=== PATIENT | male | born 1965 | race Caucasian/White ===

== ENCOUNTER → 2017-12-19 07:00 | Outpatient (CLI) | payer BC, SELFPAY ==
[2017-12-19 10:38] LABS: Cholesterol 184 mg/dL (200); High Density Lipoprotein 39 mg/dL; T4 Total, Thyroxin 9.8 ug/dL (4.5-12.1); Thyroid Stim Hormone (TSH) 0.69 uIU/mL (0.358-3.74); Triglycerides 177 mg/dL; Very Low Density Lipoprotein 35 mg/dL (5-40)
== END ==
PROVIDERS: Family Provider Family Medicine; PCP Family Medicine; Visit Provider Family Medicine
DX: E03.9 Hypothyroidism, unspecified (principal); E78.5 Hyperlipidemia, unspecified
CPT/HCPCS: 36415; 80061; 84436; 84443

== ENCOUNTER → 2019-01-16 07:02 | Outpatient (CLI) | payer OTHER, SELFPAY ==
[2019-01-16 10:36] LABS: AST(SGOT) 25 U/L (15-37); Alanine Aminotransfer ALT/SGPT 44 U/L (16-61); Cholesterol 238 mg/dL (200); High Density Lipoprotein 34 mg/dL; T4 Total, Thyroxin 6.8 ug/dL (4.5-12.1); Thyroid Stim Hormone (TSH) 2.79 uIU/mL (0.358-3.74); Triglycerides 457 mg/dL
== END ==
PROVIDERS: Family Provider Family Medicine; PCP Family Medicine; Referring Provider Family Medicine; Visit Provider Family Medicine
DX: E78.5 Hyperlipidemia, unspecified (principal); E03.9 Hypothyroidism, unspecified
CPT/HCPCS: 36415; 80061; 84436; 84443; 84450; 84460

== ENCOUNTER → 2019-03-13 13:46 | Outpatient (CLI) | payer OTHER, SELFPAY ==
--- NOTE | 2019-03-13 15:20 | NEURO ---
NCS and/or EMG Patient Report Ordering Doctor: Sue Zhang DATE OF SERVICE: 03/13/19 Noel Spain is a 53-year-old male presents for electrodiagnostic testing of the upper limbs. He reports numbness and tingling in both hands, worse on the left side. Electrodiagnostic findings: The left median motor nerve demonstrates prolonged distal latency with normal amplitude and reduced conduction velocity. Right median motor nerve demonstrates prolonged distal latency with normal amplitude and reduced conduction velocity. Normal ulnar motor response bilaterally. Prolonged right median F-wave. Prolonged left ulnar F-wave. Prolonged median sensory latency at the wrist bilaterally. Prolonged left median palmar latency On needle EMG, all muscles tested in the upper limb showed no evidence of denervation with normal motor unit action potentials. Next Electrodiagnostic impression: This is an abnormal study in the upper limbs. 1. 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 This is consistent with a mild right carpal tunnel syndrome and a moderate left carpal tunnel syndrome. If there are any further questions, please not hesitate to contact me
== END ==
PROVIDERS: Family Provider Family Medicine; PCP Family Medicine; Referring Provider Family Medicine; Visit Provider Family Medicine
DX: R20.2 Paresthesia of skin (principal)
CPT/HCPCS: 95886; 95912

== ENCOUNTER 2019-04-30 12:29 | Day surgery (SDC) | payer OTHER, SELFPAY ==
[2019-04-12 10:08] VITALS: BMI 32.5
[2019-04-30 13:14] VITALS: BP 126/79; PULSE 75; RESP 16; TEMP 36.5; O2SAT 98; BMI 33.1
[2019-04-30] MEDS: Lactated Ringers 1,000 ML 100 ML IV (13:26)
--- NOTE | 2019-04-30 13:33 | PCM.HP.BLA ---
History and Physical Date of Admission: 04/30/19 Intake Vital Signs 04/12/19 Height 6 ft 04/12/19 Weight: 240 lb 04/12/19 Body Mass Index (BMI) 32.5 Intake Visit Reasons: Bilat wrists Is patient in pain?: Yes Medications aspirin 325 mg tablet 325 mg PO DAILY 04/12/19 [History Confirmed 04/12/19] gemfibrozil 600 mg tablet 600 mg PO BID 04/12/19 [History Confirmed 04/12/19] levothyroxine 25 mcg tablet 25 mcg PO DAILY 04/12/19 [History Confirmed 04/12/19] niacin 100 mg tablet 100 mg PO DAILY 04/12/19 [History Confirmed 04/12/19] HPI Bilat wrists: Chief Complaint: Referral from Dr. Zhang b/l hand numbness tingling and pain left worse Details: Parts of this documentation were recorded by a scribe, this documentation accurately reflects the service provided and the decisions made by me, Jesus Stephenson, 04/12/19 0752. JAIME AMOS is a 53 year old M NEW patient here today for bilateral carpal tunnel, referred by Dr Zhang. He has a recent EMG here for review. He denies any bracing at night but has been positioning his hands on his chest at night for comfort. He states that he has numbness into all fingers but the pinky and that has been going on for a year. Left hand has greater symptoms than the right. Patient is right hand dominant. Denies any injections. Ortho Exam Right Wrist/Hand Skin/Wound: No Swelling, No Ecchymosis, Yes nail intact, Yes capillary refill normal Right Wrist: Yes ROM-Extension 0-60, ROM-Flexion 0-80, ROM-Pronation 0-80 and ROM-Supination 0-90; no Durken's Test (symptoms present prior to provocati), Tinel's, Phalen's (symptoms present prior to provocative maneuvers), Thenar Atrophy or Hypothenar Atrophy Sensation: Radial: I, Ulnar: I, Median: D Left Wrist/Hand Skin/Wound: No Swelling, No Ecchymosis, Yes nail intact, Yes capillary refill normal, No erythema Left Wrist: Yes ROM-Extension 0-60, Yes ROM-Flexion 0-80, Yes ROM-Pronation 0-80 and Yes ROM-Supination 0-90; no Durken's Test (symptoms present prior to provocati), no Tinel's, no Phalen's (symptoms present prior to provocative maneuvers), no Thenar Atrophy or no Hypothenar Atrophy Sensation: Radial: I, Ulnar: I, Median: D Right Elbow Test: No Tinel's Left Elbow Test: No Tinel's Supplemental Info EMG 03/13/19: Bilateral carpal tunnel syndrome mild right moderate left Assessment & Plan Problems 1. Carpal tunnel syndrome, bilateral G56.03 Plan Educated on the anatomy of the wrist and innervation of the nerves, patient has mild right carpal tunnel and moderate left carpal tunnel. His treatment options are night splint with anti inflammatory for 6wks, and nerve gliding exercises, or carpal tunnel release. To treat both we can release the left and splint the right for 6wks at night. No anti inflammatory for a week prior to surgery. Reviewed the risk of continued weakness and tingling but it can resolve over time, the purpose of surgery is to stop progression. Risks, benefits and alternatives of surgery reviewed including but no limited to risk of incisional hypersensitivity, pillar pain and continued symptomology, nerve or artery damage, finger and wrist stiffness. Post op restrictions reviewed. Follow up post op or sooner if pain, swelling, numbness or associated symptoms, or concerns develop. All questions answered. Patient in agreement of plan. Will forward a copy of this note to Dr. Bowers. Thank you for this referral. Coding Level of Care Code 23551 Diagnoses Carpal tunnel syndrome, bilateral G56.03 I have re-examined the patient. There are no clinical changes since date of exam
--- NOTE | 2019-04-30 13:35 | PCM.DC.ORTHO ---
Discharge Diet: No Restrictions Call your doctor if you observe: Fever of 101 or Higher, Shortness of breath, Chest pain Additional Instructions: Ice and elevate operative extremity next 72 hours. Keep dressing on clean and dry for 48 hours then may remove and allow warm soapy water to rinse over incision but do not submerge until sutures are out. Then apply bandaid over incision and change daily. encourage finger range of motion. Not lift more than 1/2 pound. Allergies/Adverse Reactions: Allergies No Known Allergies Allergy (Verified 04/23/19 08:16) Medications to take at Discharge aspirin 325 mg tablet 325 mg PO QHS 04/12/19 gemfibrozil 600 mg tablet 600 mg PO BID 04/12/19 levothyroxine 25 mcg tablet 25 mcg PO DAILY 04/12/19 niacin 100 mg tablet 100 mg PO DAILY 04/12/19 Hydrocodone Bitart/Apap 5-325 [[place] 5MG-325MG] 1 - 2 tablet PO Q4H PRN PRN 5 Days #40 tablet 04/30/19 The following prescriptions were given: Hydrocodone Bitart/Apap 5-325 [[place] 5MG-325MG] 1 - 2 tablet PO Q4H PRN PRN 5 Days #40 tablet PRN Reason: Pain Transmission Status: Received by [facility]/pharmacy #[id number] Primary Care Physician: Sue Zhang MD [Primary Care Provider] - Test Results: Test results from this visit will be discussed in further detail at your follow-up appointment, if applicable. Please Follow Up With: Jesus Stephenson DO - 2 weeks
[2019-04-30] MEDS: Cefazolin 2 GM in 0.9% Normal Saline 100 ML IV (13:45)
[2019-04-30] MEDS: Bupiv/Epi 0.25% 30 ML Vial (13:50)
--- NOTE | 2019-04-30 14:11 | PCM.OPRPT ---
Report of Operation Date of Procedure: 04/30/19 Description of Surgical Findings:: Preoperative diagnosis; left carpal tunnel syndrome Postoperative diagnosis; same Procedure: Left open carpal tunnel release Anesthesia: Local with MAC Tourniquet time; 12 minutes 250 mm Hg Complications: None Indication for procedure; This is a D3-year-old male with long-standing symptoms consistent with carpal tunnel syndrome the patient did have electrodiagnostic evidence of this and has failed conservative treatment. Risks benefits and alternatives were reviewed including risks of bleeding infection nerve artery tissue damage need for further surgery and continued pain and symptoms, hypersensitivity to scar and Pillar pain. Procedure; The patient was met in the preoperative holding area the operative extremity was identified by both patient and physician and was marked the patient was met by anesthesia and brought back to the operating room and transferred to the operating table in the supine position. Aanesthesia was started. A well-padded tourniquet was placed on the operative upper extremity. The patient was prepped and draped in the usual sterile fashion. A timeout was called to ensure the proper patient procedure and extremity were being contemplated. 0.5 percent Marcaine with epinephrine was injected into the incisional area. An Esmarch was used to exsanguinate the extremity. The tourniquet was inflated to 250 mmHg. A midline incision was made with a 15 blade scalpel between the thenar and hypothenar eminence. This was carried down through the skin and subcutaneous tissue. Saeed retractors were then used, a deep blade scalpel was used to make a deep incision in the palmar aponeurosis. The saeed retractors were then placed deep to this and the transverse carpal ligament was identified a perforation was made with a scalpel and a Littler scissors were used to complete the release of the transverse carpal ligament distally under direct visualization with the tips facing ulnarly until the perivascular fat was reached. Then turning our attention proximally using a tension slide technique the proximal extent of the transverse carpal ligament was released . There was noted to be hourglass configuration to the median nerve and hypertrophy of the transverse carpal ligament without other findings. The wound was thoroughly irrigated and was closed with 4-0 prolene vertical mattress stitches. Dressing was applied in the form of xeroform 4 x 4, web roll and an tania wrap. Tourniquet was let down there is no intraoperative complications patient tolerated the procedure well and was transferred to the PACU. All counts were correct.
[2019-04-30 14:14] VITALS: BP 108/74; BP 126/79; PULSE 81; RESP 16; TEMP 36.8; O2SAT 97
[2019-04-30 14:20] VITALS: BP 112/71; BP 126/79; PULSE 82; RESP 16; O2SAT 96
[2019-04-30 14:25] VITALS: BP 103/76; BP 126/79; PULSE 88; RESP 16; O2SAT 97
[2019-04-30 14:30] VITALS: BP 110/76; BP 126/79; PULSE 80; RESP 16; TEMP 36.6; O2SAT 96
[2019-04-30 15:18] VITALS: BP 126/79
== END 2019-04-30 15:22 | disposition home or self-care (01) ==
LOC: SDC 12:29 → AC 12:30
PROVIDERS: Family Provider Family Medicine; PCP Family Medicine; Referring Provider Orthopaedic Surgery; Visit Provider Orthopaedic Surgery
PROC: (CPT 64721; principal; 2019-04-30 13:45)
DX: G56.03 Carpal tunnel syndrome, bilateral upper limbs (principal); E78.00 Pure hypercholesterolemia, unspecified; E06.9 Thyroiditis, unspecified; Z79.82 Long term (current) use of aspirin; Z79.899 Other long term (current) drug therapy
CPT/HCPCS: 01810; 64721; J7120; J2405

== ENCOUNTER → 2020-01-03 08:44 | Outpatient (CLI) | payer OTHER, SELFPAY ==
[2019-06-07 08:12] VITALS: BMI 33.1
[2020-01-03 10:28] LABS: AST(SGOT) 24 U/L (15-37); Alanine Aminotransfer ALT/SGPT 80 U/L (16-61); Cholesterol 285 mg/dL (200); High Density Lipoprotein 31 mg/dL; T4 Total, Thyroxin 8.6 ug/dL (4.5-12.1); Thyroid Stim Hormone (TSH) 1.82 uIU/mL (0.358-3.74); Triglycerides 512 mg/dL
== END ==
PROVIDERS: PCP Family Medicine; Referring Provider Family Medicine; Visit Provider Family Medicine
DX: E78.5 Hyperlipidemia, unspecified (principal); E03.9 Hypothyroidism, unspecified
CPT/HCPCS: 36415; 80061; 84436; 84443; 84450; 84460

== ENCOUNTER → 2020-03-31 13:01 | Outpatient (CLI) | payer OTHER, SELFPAY ==
[2019-06-07 08:12] VITALS: BMI 33.1
[2020-03-31 15:26] LABS: AST(SGOT) 27 U/L (15-37); Alanine Aminotransfer ALT/SGPT 49 U/L (16-61); Cholesterol 178 mg/dL (200); High Density Lipoprotein 45 mg/dL; PSA,Total - Annual Screen 0.24 ng/mL (0.00-4.00); Triglycerides 235 mg/dL; Very Low Density Lipoprotein 47 mg/dL (5-40)
== END ==
PROVIDERS: PCP Family Medicine; Referring Provider Family Medicine; Visit Provider Family Medicine
DX: E78.5 Hyperlipidemia, unspecified (principal); Z12.5 Encounter for screening for malignant neoplasm of prostate
CPT/HCPCS: 36415; 80061; 84153; 84450; 84460; G0103

== ENCOUNTER → 2020-09-25 07:00 | Outpatient (CLI) | payer OTHER, SELFPAY ==
[2019-06-07 08:12] VITALS: BMI 33.1
[2020-09-25 10:53] LABS: AST(SGOT) 31 U/L (15-37); Alanine Aminotransfer ALT/SGPT 75 U/L (16-61); Cholesterol 168 mg/dL (200); High Density Lipoprotein 39 mg/dL; T4 Total, Thyroxin 11.4 ug/dL (4.5-12.1); Thyroid Stim Hormone (TSH) 0.24 uIU/mL (0.358-3.74); Triglycerides 307 mg/dL; Very Low Density Lipoprotein 61 mg/dL (5-40)
== END ==
PROVIDERS: PCP Family Medicine; Referring Provider Family Medicine; Visit Provider Family Medicine
DX: E78.5 Hyperlipidemia, unspecified (principal); E03.9 Hypothyroidism, unspecified
CPT/HCPCS: 36415; 80061; 84436; 84443; 84450; 84460

== ENCOUNTER → 2021-09-30 | Outpatient (CLI) | payer OTHER, SELFPAY ==
[2021-09-30 10:26] LABS: AST(SGOT) 19 U/L (15-37); Alanine Aminotransfer ALT/SGPT 39 U/L (16-61); Cholesterol 164 mg/dL (200); High Density Lipoprotein 38 mg/dL; T4 Total, Thyroxin 11.9 ug/dL (4.5-12.1); Triglycerides 276 mg/dL; Very Low Density Lipoprotein 55 mg/dL (5-40)
[2021-09-30 10:36] LABS: Hemoglobin A1c 11.3 % (3.8-5.6)
== END | disposition home or self-care (01) ==
PROVIDERS: PCP Family Medicine; Referring Provider Family Medicine; Visit Provider Family Medicine
DX: E78.5 Hyperlipidemia, unspecified (principal); E03.9 Hypothyroidism, unspecified
CPT/HCPCS: 36415; 80061; 83036; 84436; 84443; 84450; 84460

== ENCOUNTER → 2022-09-30 | Outpatient (CLI) | payer OTHER, SELFPAY ==
[2022-09-30 10:41] LABS: Anion Gap 6 (5-15); BUN 15 mg/dL (7-18); Calcium,Total 9.3 mg/dL (8.5-10.1); Chloride 102 mmol/L (98-107); Cholesterol 170 mg/dL (200); Creatinine, Serum 0.79 mg/dL (0.70-1.30); EST Glomerular Filtration Rate 107 mL/min (>60); Est Glom Filt Rate - Afr Amer 129 mL/min (>60); Glucose 260 mg/dL (74-106); High Density Lipoprotein 45 mg/dL; Potassium 4.1 mmol/L (3.5-5.1); Sodium Level 134 mmol/L (136-145); T4 Total, Thyroxin 11.5 ug/dL (4.5-12.1); Thyroid Stim Hormone (TSH) 0.06 uIU/mL (0.358-3.74); Triglycerides 260 mg/dL; Very Low Density Lipoprotein 52 mg/dL (5-40)
== END | disposition home or self-care (01) ==
PROVIDERS: PCP Family Medicine; Referring Provider Family Medicine; Visit Provider Family Medicine
DX: Z00.00 Encounter for general adult medical examination without abnormal findings (principal); E03.9 Hypothyroidism, unspecified; E78.5 Hyperlipidemia, unspecified
CPT/HCPCS: 36415; 80048; 80061; 84436; 84443

== ENCOUNTER → 2023-11-07 | Outpatient (CLI) | payer OTHER, SELFPAY ==
[2023-11-07 10:42] LABS: AST(SGOT) 22 U/L (15-37); Alanine Aminotransfer ALT/SGPT 27 U/L (16-61); Albumin, Serum 3.7 g/dL (3.2-5.0); Alkaline Phosphatase 61 U/L (45-117); Anion Gap 11 (5-15); BUN 19 mg/dL (7-18); BUN/Creat Ratio 22.6 RATIO (10-20); Bilirubin, Direct 0.13 mg/dL (0.00-0.30); Calcium,Total 9.2 mg/dL (8.5-10.1); Chloride 102 mmol/L (98-107); Cholesterol 156 mg/dL (200); Creatinine, Serum 0.84 mg/dL (0.70-1.30); EST Glomerular Filtration Rate 99 mL/min (>60); Est Glom Filt Rate - Afr Amer 120 mL/min (>60); Globulin 3.5 g/dL (2.2-4.2); Glucose 166 mg/dL (74-106); High Density Lipoprotein 39 mg/dL; Potassium 4.2 mmol/L (3.5-5.1); Protein, Total 7.2 g/dL (6.4-8.2); Sodium Level 134 mmol/L (136-145); T4 Total, Thyroxin 11.6 ug/dL (4.5-12.1); Thyroid Stim Hormone (TSH) 0.27 uIU/mL (0.358-3.74); Triglycerides 237 mg/dL; Very Low Density Lipoprotein 47 mg/dL (5-40)
[2023-11-10 18:21] LABS: Microalbumin,Random Urine < 5.0 mg/L (NO RANGE EST.)
== END | disposition home or self-care (01) ==
LOC: MTLAB 07:05
PROVIDERS: PCP Family Medicine; Referring Provider Family Medicine; Visit Provider Family Medicine
DX: E11.65 Type 2 diabetes mellitus with hyperglycemia (principal); E03.9 Hypothyroidism, unspecified
CPT/HCPCS: 36415; 80048; 80061; 80076; 82043; 82570; 84436; 84443

== ENCOUNTER → 2024-05-27 | Outpatient (CLI) | payer OTHER, SELFPAY ==
[2024-05-27 12:25] LABS: PSA,Total - Annual Screen 0.23 ng/mL (0.00-4.00)
== END | disposition home or self-care (01) ==
LOC: MFPLAB 10:13
PROVIDERS: PCP Family Medicine; Referring Provider Family Medicine; Visit Provider Family Medicine
DX: Z12.5 Encounter for screening for malignant neoplasm of prostate (principal)
CPT/HCPCS: 36415; 84153; G0103

== ENCOUNTER → 2024-07-17 | Outpatient (CLI) | payer OTHER, SELFPAY ==
--- NOTE | 2024-07-17 09:40 | NEURO_ITS ---
NCS and/or EMG Patient Report Ordering Doctor: Gilda Herndon DATE OF SERVICE: 07/17/24 Noel presents with complaints of numbness and tingling in both feet. He reports a 2-year history of diabetes. Electrodiagnostic findings: Peroneal motor nerve demonstrates normal distal latency, amplitude and conduction velocity bilaterally. Prolonged right tibial motor latency with reduced amplitude. Reduced left tibial conduction velocity. Prolonged H?reflex bilaterally. Prolonged tibial and peroneal F?waves bilate rally. Sensory responses were not obtainable. Needle EMG testing was performed in the lower limbs. All muscles tested showed no evidence of denervation with normal motor unit action potentials Electrodiagnostic impression: This is an abnormal study. 1. Electrodiagnostic findings suggestive of peripheral polyneuropathy, sensory greater than motor. There is no evidence of axon loss. Findings may be secondary to diabetes mellitus. Multi Select Codes Neurology Neurology Interp Codes: 70584-57 Musc test done w/n test comp (interp) (2) and 51174-70 Nrv cndj test 11-12 studies (interp)
== END | disposition home or self-care (01) ==
PROVIDERS: PCP Family Medicine
DX: Z00.00 Encounter for general adult medical examination without abnormal findings (principal); E08.42 Diabetes mellitus due to underlying condition with diabetic polyneuropathy
CPT/HCPCS: 95886; 95912

== ENCOUNTER → 2024-07-24 | Outpatient (CLI) | payer OTHER, SELFPAY ==
--- NOTE | 2024-07-24 12:47 | NEURO ---
NCS and/or EMG Patient Report Ordering Doctor: Gilda Herndon DATE OF SERVICE: 07/24/24 Noel presents for electrodiagnostic testing of the upper limbs. He reports numbness and tingling in both hands. He has a history of carpal tunnel release in the left hand which did not help alleviate symptoms. Electrodiagnostic findings: Right median motor nerve demonstrates prolonged latency with normal amplitude and reduced conduction velocity. Left median motor nerve demonstrates normal distal latency and amplitude with reduced conduction velocity. Ulnar motor response is within normal limits bilaterally. Normal median and ulnar F?waves. Prolonged median sensory latency at the wrist. Normal ulnar and radial sensory responses. Needle EMG testing was performed in the upper limbs. All muscles tested showed no evidence of denervation with normal motor unit action potentials. Electrodiagnostic impression: This is an abnormal study in the upper limbs 1. Electrodiagnostic findings are suggestive of bilateral median mononeuropathy, consistent with a mild to moderate bilateral carpal tunnel syndrome. 2. While there are findings of polyneuropathy on testing of the lower limbs, findings in the upper limbs are largely isolated to the median nerve distribution. Multi Select Codes Neurology Neurology Interp Codes: 91755-79 Musc test done w/n test comp (interp) (2) and 37874-49 Nr cndj test 13/> studies (interp)
== END | disposition home or self-care (01) ==
LOC: PSN 06:34
PROVIDERS: PCP Family Medicine
DX: E11.42 Type 2 diabetes mellitus with diabetic polyneuropathy (principal)
CPT/HCPCS: 95886; 95913

== ENCOUNTER → 2024-09-16 | Outpatient (CLI) | payer OTHER, SELFPAY ==
[2024-09-16 13:20] LABS: Magnesium 1.8 mg/dL (1.5-2.2); Vitamin B12 855 pg/mL (180-914)
== END | disposition home or self-care (01) ==
LOC: MTLAB 10:24
PROVIDERS: PCP Family Medicine; Referring Provider Psychiatry & Neurology Neurology; Visit Provider Psychiatry & Neurology Neurology
DX: E11.40 Type 2 diabetes mellitus with diabetic neuropathy, unspecified (principal)
CPT/HCPCS: 36415; 82607; 83735

== ENCOUNTER → 2024-11-26 | Outpatient (CLI) | payer OTHER, SELFPAY ==
--- OUTSIDE RECORDS SUMMARY | 2024-11-26 07:15 | XMS RPT_ITS | CCD ---
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 Sue Hester Primary Care Provider Leatha BAEZA, Dr. Sue Hester Attending Provider Leatha BAEZA, Dr. Sue Hester Referring Provider Destiney BAEZA, Dr. Lee Attending Provider Yanick INCOME TAX PREPARER-C, Gilda Attending Provider Yanick INCOME TAX PREPARER-C, Gilda Referring Provider Yanick INCOME TAX PREPARER-C, Gilda Other Provider Martha BAEZA, Dr. Miller Attending Provider Destiney BAEZA, Dr. Lee Referring Provider Keyonalliff, Sue S Referring Unavailable DarlinepensJesus campa Attending Unavailable Jolliff, Sue S Primary Care Unavailable Angela Thomas Attending Unavailable TobidnGilda espinosa Consulting Unavailable TobidnerGilda Referring Unavailable Jolliff, Sue S Primary Care Unavailable Angela Thomas Attending Unavailable TobidnerGilda Referring Unavailable BordnerGilda Consulting Unavailable Jolliff, Sue S Primary Care Unavailable Keyonalliff, Sue S Primary Care Unavailable Jesus Cabello Referring Unavailable Jesus Cabello Attending Unavailable Keyonalliff, Sue S Primary Care Unavailable Jolliff, Sue S Referring Unavailable Jesus Cabello Attending Unavailable TobidnerGilda Referring Unavailable BordnerGilda Attending Unavailable Jolliff, Sue S Primary Care Unavailable Bordner, Gilda Referring Unavailable Bordner, Gilda Attending Unavailable Jolliff, Sue S Primary Care Unavailable Jolliff, Sue S Referring Unavailable Jolliff, Sue S Attending Unavailable Jolliff, Sue S Primary Care Unavailable Sue Zhang Referring Unavailable uSe Zhang Attending Unavailable Sue Zhang Primary Care Unavailable Medications Current Medications Medication Drug Class(es) Dates Sig (Normalized) Sig (Original) gabapentin 600 mg oral tablet (1 source) Anti-epileptic Agent Start: 07-05-2024 take 1 tablet by mouth at bedtime Gabapentin 600 mg tablet Active 600 mg PO AT BEDTIME July 05, 2024 1:00am levothyroxine sodium 0.175 mg oral tablet (4 sources) l-Thyroxine Start: 07-05-2024 take 1 tablet by mouth once daily Levothyroxine 175 mcg tablet Active 175 ug PO daily July 05, 2024 1:00am Start: 04-12-2019 End: 07-05-2024 take 1 tablet by mouth once daily Levothyroxine (Synthroid) 25 mcg tablet Discontinued 25 ug PO DAILY April 12, 2019 1:00am July 05, 2024 10:33am metFORMIN hydrochloride 500 mg oral tablet (2 sources) Biguanide Start: 07-05-2024 End: 2024 take 2 tablets by mouth in the evening Metformin 500 mg tablet Active 500 mg PO .COMPLEX 2024 9:44am 500 mg orally 1 tab in the am and 2 tabs in the pm; rosuvastatin calcium 20 mg oral tablet (1 source) HMG-CoA Reductase Inhibitor Start: 07-05-2024 take 1 tablet by mouth once daily Rosuvastatin 20 mg tablet Active 20 mg PO daily July 05, 2024 1:00am ubidecarenone 200 mg oral capsule (1 source) Start: 07-05-2024 Coenzyme Q10 ( Co Q-10) 200 mg capsule Active 200 mg PO TWICE A DAY July 05, 2024 1:00am Completed/Discontinued Medications Medication Drug Class(es) Dates Sig (Normalized) Sig (Original) acetaminophen 325 mg / HYDROcodone bitartrate 5 mg oral tablet (3 sources) Opioid Agonist Start: 04-30-2019 End: 05-22-2019 Hydrocodone-Acetami nophen 1 TABLET tablet Discontinued 1 - 2 {tbl} PO EVERY 4 HOURS NEEDED as needed for Pain 40 5 April 30, 2019 May 04, 2019 1:00am May 22, 2019 1:08am Start: 04-30-2019 End: 05-22-2019 take 1 tablet by mouth every four hours as needed Hydrocodone-Acetaminophen Discontinued 1 - 2 TABLET PO EVERY 4 HOURS NEEDED 40 5 April 30, 2019 May 22, 2019 1:08am aspirin 325 mg oral tablet (3 sources) Platelet Aggregation Inhibitor, Nonsteroidal Anti-inflammatory Drug Start: 04-12-2019 End: 07-05-2024 take 1 tablet by mouth at bedtime Aspirin 325 mg tablet Discontinued 325 mg PO AT BEDTIME April 12, 2019 1:00am July 05, 2024 10:32am gemfibrozil 600 mg oral tablet (3 sources) Peroxisome Proliferator Receptor alpha Agonist Start: 04-12-2019 End: 07-05-2024 take 1 tablet by mouth twice daily Gemfibrozil 600 mg tablet Discontinued 600 mg PO TWICE A DAY April 12, 2019 1:00am July 05, 2024 10:33am niacin 100 mg oral tablet (3 sources) Nicotinic Acid Start: 04-12-2019 End: 07-05-2024 take 1 tablet by mouth once daily Niacin 100 mg tablet Discontinued 100 mg PO DAILY April 12, 2019 1:00am July 05, 2024 10:33am Problems Active Problems Problem Classification Problem Date Documented Date Episodic/Chronic Diabetes mellitus with complications (8 sources) Neuropathy due to diabetes mellitus; Translations: [Type 2 diabetes mellitus with diabetic neuropathy, unspecified] Onset: 11-17-2023 2024 Chronic Comment on above: Patient appears to h ave likely diabetic neuropathy in both feet. It is well-demonstrated by clinical examination.Patient also has evidence of carpal tunnel actually had a carpal tunnel release on the left hand performed. Hands appear to be asymptomatic at this time and this finding was demonstrated by Tinel's sign.Patient will give magnesium oxide 400 mg by mouth daily to try and will supplement with B1 thiamine 1 mg daily, B6 pyridoxine 50 mg daily and B12 1000 mcg (1 mg) every other day.Patient will also have an EMG and nerve conduction study performed.Patient will return to neurology clinic once the above studies have been completed.09/16/2024:Patient did have an EMG nerve conduction study performed which demonstrated a sensory neuropathy. Findings were suggestive of diabetic neuropathy. Other diagnostic considerations also noted as a possibility.Patient has made some improvement over time.I will check a B12 and magnesium level. Patient return neurology clinic 1 year. Past or Other Problems Problem Classification Problem Date Documented Da te Episodic/Chronic Other screening for suspected conditions (not mental disorders or infectious disease) (1 source) Encounter for screening for malignant neoplasm of prostate; Translations: [Encounter for screening for malignant neoplasm of prostate] Onset: 06-20-2024 Episodic Results Test Name Value Interpretation Reference Range Facility Magnesiumon 2024 Magnesium [Mass/Vol] 1.8 mg/dL Normal 1.5-2.2 [facility] Comment on above: Performed By: #### L 501.5200, L503.0106 ####[facility] [address] [place], [address] Magnesium (Unsp spec) [Mass/ Vol]Ordered By: Jesus Cabello on 2024 Magnesium [Mass/Vol] 1.8 mg/dL 1.5-2.2 [facility] Neurology Visit Reporton Neurology Visit Report [facility] [address], [address] [place], [place] [address] OFFICE VISIT Date of Service: 09/16/24 MR#: [id number] Acct: [id number] Name: JAIME AMOS Rep #: [id number] : 1965 Provider: Dr. Jesus chávez MD Age/Sex: 59/M Location: [facility]. Status: Signed HPI HPI Chief Complaint: Neurology follow up Details: The patient is a 58-year-old right handed male who presents for a follow up on diabetic neuropathy and test results. Patient presents by himself for follow-up evaluation of diabetic neuropathy. Patient has noted that on occasion he has symptom-free days. His symptoms consisted of pain in the feet at night. This may be some slight improvement. On his last visit we recommended he take B12 B6 and B1. We also recommend that he take magnesium. He has also had follow-up with his primary care physician who has increased metformin dosing. Patient is also on gabapentin per PCP. This may also be suppressing patient's symptoms of painful feet at night. Patient did have an EMG and nerve conduction study completed on 07/17/2024. Findings are as noted below: Electrodiagnostic impression: This is an abnormal study. 1. Electrodiagnostic findings suggestive of peripheral polyneuropathy, sensory greater than motor. There is no evidence of axon loss. Findings may be secondary to diabetes mellitus. At this point in time it may take 3 to 6 months for patient to show improvement in neuropathy. Will have the patient back in 1 year for follow-up or sooner if needed. In the meantime I will check B12 level and magnesium level to make certain were within therapeutic range. Exam Const Other: Blood pressure is 130/70 pulse 77 respiration 16 temperature 98.4 O2 sat is 97%. BMI is 31.2% he is 5 feet 2-1/2 inches and weighs 221 pounds. General appearance well-developed well-nourished male no acute distress. Mental status appears intact. He is oriented. Memory and language functions are normal. General fund of knowledge intact. CN II-XII: Pupils are equal and round. Vision appears to be intact. Fundi not examined. Motor and sensory function of face intact. Hearing swallowing phonation tongue grossly intact. Motor examination: No focal weakness. Good strength in both hands. No atrophy is intrinsic muscles of the hand. Lower extremities also appear to have normal bulk tone and strength. Cerebellar function show no ataxia cogwheeling or rigidity. Reflexes were again difficult to elicit perhaps trace at biceps absent at knees. Absent of ankles. Toes neutral. Sensory exam showed that there is a mild decrease in sensation left hand greater than right with involvement of thumb index finger middle fingers bilaterally. Positive Tinel's left greater than right. Patient had prior surgery left hand which did not seem to improve his hand. He deferred having right hand surgery. Lower extremities show relatively profound loss of vibration and tactile sense from about mid lower leg to toes. He has intact vibratory sense and tactile sense at the knees. Station gait appears normal. Assessment and Plan Assessment and Plan (1) Diabetic neuropathy: Status: Chronic Qualifiers: Diabetes mellitus complication detail: diabetic polyneuropathy Diabetes mellitus type: due to underlying condition Qualified Code(s): E08.42 - Diabetes mellitus due to underlying condition with diabetic polyneuropathy Comment: Patient appears to have likely diabetic neuropathy in both feet. It is well-demonstrated by clinical examination. Patient also has evidence of carpal tunnel actually had a carpal tunnel release on the left hand performed. Hands appear to be asymptomatic at this time and this finding was demonstrated by Tinel's sign. Patient will give magnesium oxide 400 mg by mouth daily to try and will supplement with B1 thiamine 1 mg daily, B6 pyridoxine 50 mg daily and B12 1000 mcg (1 mg) every other day. Patient will also have an EMG and nerve conduction study performed. Patient will return to neurology clinic once the above studies have been completed. 2024: Patient did have an EMG nerve conduction study performed which demonstrated a sensory neuropathy. Findings were suggestive of diabetic neuropathy. Other diagnostic considerations also noted as a possibility. Patient has made some improvement over time. I will check a B12 and magnesium level. Patient return neurology clinic 1 year. Plan: 1. Check B12 magnesium level. 2. Have patient return to neurology clinic in 1 year or sooner if needed. Anticipate that may take 3 to 6 months before further benefit will be noted by the patient with regard to peripheral diabetic neuropathy. Orders: Orders Vitamin B12 Today E08.42 - Diabetes mellitus due to underlying condition with diabetic polyneuropathy Magnesium Today E08.42 - Diabetes mellitus due (more content not included)... Normal [facility] Vitamin B12on 2024 Cobalamin (Vitamin B12) [Mass/Vol] 855 pg/mL Normal 180-914 [facility] Comment on above: Performed By: #### L 501.5200, L503.0106 ####[facility] [id number], [address] Vitamin B12 ser/plasOrdered By: Jesus Cabello on 2024 Cobalamin (Vitamin B12) [Mass/Vol] 855 pg/mL 180-914 [facility] NCS and/or EMG Patienton NCS and/or EMG Patient [facility] Pulmonary Services/Neurology [address] [place] [address] MR#: [id number] Acct: [id number] Name: JAIME AMOS Rep #: [id number] : 1965 58 From: Angela Thomas MD Referring Dr: Gilda Herndon INCOME TAX PREPARER-C Status: REG CL I Location: [facility] Date: 07/24/24 Sex: M C NCS and/or EMG Patient Report Ordering Doctor: Gilda Herndon DATE OF SERVICE: 07/24/24 Jaime presents for electrodiagnostic testing of the upper limbs. He reports numbness and tingling in both hands. He has a history of carpal tunnel release in the left hand which did not help alleviate symptoms. Electrodiagnostic findings: Right median motor nerve demonstrates prolonged latency with normal amplitude and reduced conduction velocity. Left median motor nerve demonstrates normal distal latency and amplitude with reduced conduction velocity. Ulnar motor response is within normal limits bilaterally. Normal median and ulnar F???waves. Prolonged median sensory latency at the wrist. Normal ulnar and radial sensory responses. Needle EMG testing was performed in the upper limbs. All muscles tested showed no evidence of denervation with normal motor unit action potentials. Electrodiagnostic impression: This is an abnormal study in the upper limbs 1. Electrodiagnostic findings are suggestive of bilateral median mononeuropathy, consistent with a mild to moderate bilateral carpal tunnel syndrome. 2. While there are findings of polyneuropathy on testing of the lower limbs, findings in the upper limbs are largely isolated to the median nerve distribution. Multi Select Codes Neurology Neurology Interp Codes: 27943-57 Musc test done w/n test comp (interp) (2) and 08730-53 Nrv cndj test 13/> studies (interp) 07/24/24 1251 Date Angela Thomas MD CC: INCOME TAX PREPARER-C Gilda Herndon; Dr. Sue Zhang MD; Dr. Angela Thmoas MD Date Dictated: 07/24/24 1247 Date Transcribed: 07/24/24 124 Cushion Builder: AA Signed Normal [facility] NCS and/or EMG Patienton NCS and/or EMG Patient [facility] Pulmonary Services/Neurology [address] [place] [address] MR#: [id number] Acct: [id number] Name: JAIME AMOS Rep #: [id number] : 1965 58 From: Angela Thomas MD Referring Dr: Gilda Herndon INCOME TAX PREPARER-C Status: REG CL I Location: [facility] Date: 07/17/24 Sex: M C NCS and/or EMG Patient Report Ordering Doctor: Gilda Herndon DATE OF SERVICE: 07/17/24 Jaime presents with complaints of numbness and tingling in both feet. He reports a 2-year history of diabetes. Electrodiagnostic findings: Peroneal motor nerve demonstrates normal distal latency, amplitude and conduction velocity bilaterally. Prolonged right tibial motor latency with reduced amplitude. Reduced left tibial conduction velocity. Prolonged H???reflex bilaterally. Prolonged tibial and peroneal F???waves bilaterally. Sensory responses were not obtainable. Needle EMG testing was performed in the lower limbs. All muscles tested showed no evidence of denervation with normal motor unit action potentials Electrodiagnostic impression: This is an abnormal study. 1. Electrodiagnostic findings suggestive of peripheral polyneuropathy, sensory greater than motor. There is no evidence of axon loss. Findings may be secondary to diabetes mellitus. Multi Select Codes Neurology Neurology Interp Codes: 19103-84 Musc test done w/n test comp (interp) (2) and 48404-92 Nrv cndj test 11-12 studies (interp) 07/17/24 0945 Date Angela Thomas MD CC: SUE Herndon; Dr. Sue Zhang MD; Dr. Angela Thomas MD Date Dictated: 07/17/24939 Date Transcribed: 07/17/24939 Cushion Builder: MARCO ANTONIO Signed Normal [facility] Neurology Visit Reporton Neurology Visit Report [facility] [address], [address] [place] [id number] OFFICE VISIT Date of Service: 07/05/24 MR#: [id number] Acct: [id number] Name: JAIME AMOS Rep #: [id number] : 1965 Provider: Dr. Jesus chávez MD Age/Sex: 58/M Location: [facility].BN Status: Signed with Addenda ADDENDUM by SUE Herndon on 07/17/24 at 1247 Addendum NCS and/or EMG Patient Report Ordering Doctor: Gilda Herndon DATE OF SERVICE: 07/17/24 Jaime presents with complaints of numbness and tingling in both feet. He reports a 2-year history of diabetes. Electrodiagnostic findings: Peroneal motor nerve demonstrates normal distal latency, amplitude and conduction velocity bilaterally. Prolonged right tibial motor latency with reduced amplitude. Reduced left tibial conduction velocity. Prolonged H???reflex bilaterally. Prolonged tibial and peroneal F???waves bilaterally. Sensory responses were not obtainable. Needle EMG testing was performed in the lower limbs. All muscles tested showed no evidence of denervation with normal motor unit action potentials Electrodiagnostic impression: This is an abnormal study. 1. Electrodiagnostic findings suggestive of peripheral polyneuropathy, sensory greater than motor. There is no evidence of axon loss. Findings may be secondary to diabetes mellitus. 07/17/24 1247 Date Gilda Herndon INCOME TAX PREPARER-C cc: * Signed HPI HPI Chief Complaint: [facility] Details: The patient is a 58-year-old right handed male who presents to [facility]. He was referred 05/27/[address] Sue Zhang with [facility] for neuropathy. This patient presents by himself for evaluation of paresthesias of both feet involving the forefoot and toes. He states he has 24/7 tingling to sharp pain in both feet. Is particularly bothersome at night. He notes that he is on his feet feeling heavy labor during the day and that it seems that his foot problem is less intense when he is standing on his feet and when he sitting down or relaxing. 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 No particular toxic exposures or other precipitating factors noted. Patient has had symptoms for about perhaps 5 years or more. Patient has had a left hand carpal tunnel release performed. His hands appear to be asymptomatic at this time. He has been diagnosed with diabetes about 2 years ago. Patient's hemoglobin A1c is about 7.5 according to the patient. Patient is currently on metformin for management of his diabetes. He has a negative neurologic history. Does not have strokes or seizures. He does have hypercholesterolemia which is being treated but primary care. He does have his eyes monitored for diabetic change and appears to have no diabetic involvement of the eyes according to the patient. ROS: Head: No headache or head injuries Eyes: No change in vision Ears: No loss of hearing Respiratory no shortness of breath cough hemoptysis Cardiac no chest pain palpitations Abdomen no pain does not vomit blood does not pass blood per stool no hematuria. Extremities prior injury to right hand relatively minor blunt trauma now asymptomatic Skin mid garcia bruises on [place] hitch on his truck. Heal without difficulty. No open wounds. He did have a growth removed from the right side of head and neck which was not malignant. His past medical history does indicate that he had a melanoma on his back that had been removed. Neurologic: No seizures or strokes. He does have mild intermittent tremor of the hands. Exam Const Other: Blood pressure 110/72 pulse 92 respiration 16 temperature 98.6 O2 sat 97%. General appearance is a well-developed well-nourished male no acute distress. HEENT normocephalic. Conjunctiva clear Respiratory: Clear to auscultation Cardiac: No murmurs regular rhythm Abdomen not distended Extremities very minor trauma mid garcia 3 mm or so in size. Healing nicely. Skin skin appears to be intact and skin of feet and toenails appear healthy. Neurologic examination: Mental status: Awake alert oriented to person place day month year. Memory shows recalled 2 out of 3 objects. Language show normal receptionist scheduler expression repetition naming. Insight and judgment appears normal. CN II-XII: Pupils equal round react light. Visual torres full to confrontation. Extraocular muscles intact. Motor and sensory function face is normal. Hearing swallowing phonation tongue normal. Motor exam: Normal bulk tone and strength all 4 extremities. Cerebellar testing: Very subtle high-frequency low amplitude tremor on finger-nose maneuvers right hand. Left hand may have very subtle tremor as well but not well-seen today. Reflexes: 1+ at biceps 1+ at knees toes down. Sensory exam: Intact vibration and tactile sense both h (more content not included)... Normal [facility] PSA,Total - Annual Screenon 05-27-2024 PSA,TOT SCREEN 0.23 ng/mL Normal 0.00-4.00 [facility] Comment on above: Result Comment: This test was performed using the TPSA assay method for the [employer] chemistry system. Values obtained with different assay methods cannot be used interchangably. When changing PSA assays in the course of monitoring a patient, additional sequential testing should be carried out to confirm baseline values. Performed By: #### L 501.9910 #### [facility] [address] [place], [address] Screening prostate specific antigen (PSA) measurementOrdered By: Sue Zhang on 05-27-2024 Prostate Specific Antigen Screen 0.23 ng/mL 0.00-4.00 [facility] Comment on above: This test was perfor med using the TPSA assay method for the[employer] chemistry system. Values obtained with differentassay methods cannot be used interchangably.When changing PSA assays in the course of monitoring apatient, additional sequential testing should be carriedout to confirm baseline values. Microalb:Creat Ratio,Random URon 11-10-2023 Creatinine [Mass/Vol] 70.90 mg/dL Normal NO RANGE EST. [facility] Comment on above: Order Comment: Order Date: 05/16/23Order Info: 0779-1 - MIACRE Performed By: #### L 500.2500, L500.3400, L500.4100, L501.9310, L501.9520, L502.0250 ####[facility] [address] [place], [address] MALB:CRE TNP Normal <30 mg/g CRE [facility] Comment on above: Order Comment: Order Date: 05/16/23Order Info: 0779-1 - MIACRE Performed By: #### L 500.2500, L500.3400, L500.4100, L501.9310, L501.9520, L502.0250 ####[facility] [address] [place], [address] MICROALBUMIN,UR < 5.0 Normal NO RANGE EST. [facility] Comment on above: Order Comment: Order Date: 05/16/23Order Info: 0779-1 - MIACRE Performed By: #### L 500.2500, L500.3400, L500.4100, L501.9310, L501.9520, L502.0250 ####[facility] [address] [place], [place], [id number] Basic Metabolic Profile (BMP )on 11-07-2023 BUN/CRE 22.6 RATIO High 10-20 [facility] Comment on above: Order Comment: Order Date: 05/16/23 Order Info: 666-06 - BMP Order Info: 787-06 - LIVER Order Info: - LIPID Order Info: 3025-2 - T4 Order Info: 3015-3 - TSH Performed By: #### L 500.2500, L500.3400, L500.4100, L501.9310, L501.9520, L502.0250 #### [facility] [address] [place], [place], [id number] CA,Total 9.2 mg/dL Normal 8.5-10.1 [facility] Comment on above: Order Comment: Order Date: 05/16/23 Order Info: 666-06 - BMP Order Info: 787-06 - LIVER Order Info: - LIPID Order Info: 3025-2 - T4 Order Info: 3015-3 - TSH Performed By: #### L 500.2500, L500.3400, L500.4100, L501.9310, L501.9520, L502.0250 #### [facility] [address] [place], [place], [address] Chloride [Moles/Vol] 102 mmol/L Normal 98-107 [facility] Comment on above: Order Comment: Order Date: 05/16/23 Order Info: 666-06 - BMP Order Info: 787-06 - LIVER Order Info: - LIPID Order Info: 3026-2 - T4 Order Info: 6-3 - TSH Performed By: #### L 500.2500, L500.3400, L500.4100, L501.9310, L501.9520, L502.0250 #### [facility] [address] [place], [place], [address] CO2 [Moles/Vol] 21.0 mmol/L Normal 21.0-32.0 [facility] Comment on above: Order Comment: Order Date: 05/16/23 Order Info: 666-06 - BMP Order Info: 787-06 - LIVER Order Info: - LIPID Order Info: 2 - T4 Order Info: [id number] - TSH Performed By: #### L 500.2500, L500.3400, L500.4100, L501.9310, L501.9520, L502.0250 #### [facility] [address] [place], [place], [address] Creatinine [Mass/Vol] 0.84 mg/dL Normal 0.70-1.30 [facility] [facility] Comment on above: Order Comment: Order Date: 05/16/23 Order Info: 666-06 - BMP Order Info: 787-06 - LIVER Order Info: - LIPID Order Info: 2 - T4 Order Info: 3015-08 - TSH Result Comment: The validity of the calculated GFR GFRAA in patients over 70 years has not been determined. Clinical correlation is essential. Performed By: #### L 500.2500, L500.3400, L500.4100, L501.9310, L501.9520, L502.0250 #### [facility] [address] [place], [place], [id number] EST GFR - AA 120 mL/min Normal >60 [facility] Comment on above: Order Comment: Order Date: 05/16/23 Order Info: 666-06 - BMP Order Info: 787-06 - LIVER Order Info: - LIPID Order Info: 2 - T4 Order Info: 3 - TSH Result Comment: Afri can Ug[place]an GFR Calc Performed By: #### L 500.2500, L500.3400, L500.4100, L501.9310, L501.9520, L502.0250 #### [facility] [address] [place], [address] GAP 11 Normal 5-15 [facility] Comment on above: Order Comment: Order Date: 05/16/23 Order Info: 666-06 - BMP Order Info: 787-06 - LIVER Order Info: - LIPID Order Info: 3025-2 - T4 Order Info: 3 - TSH Performed By: #### L 500.2500, L500.3400, L500.4100, L501.9310, L501.9520, L502.0250 #### [facility] [address] [place], [place], [address] GFR/1.73 sq M.predicted among non-blacks MDRD (S/P/Bld) [Vol rate/Area] 99 mL/min/{1.73_m2} Normal >60 [facility] Comment on above: Order Comment: Order Date: 05/16/23 Order Info: 666-06 - BMP Order Info: 787-06 - LIVER Order Info: - LIPID Order Info: 2 - T4 Order Info: 3015-08 - TSH Result Comment: Non- GFR Calc Performed By: #### L 500.2500, L500.3400, L500.4100, L501.9310, L501.9520, L502.0250 #### [facility] [address] [place], [place], [address] Glucose [Mass/Vol] 166 mg/dL High 74-106 [facility] Comment on above: Order Comment: Order Date: 05/16/23 Order Info: 666-06 - BMP Order Info: 787-06 - LIVER Order Info: - LIPID Order Info: 3025-2 - T4 Order Info: 3 - TSH Result Comment: Fast ing Glucose result greater than or equal to 126 mg/dL suggests DIABETES MELLITUS per A.D.A. criteria. Performed By: #### L 500.2500, L500.3400, L500.4100, L501.9310, L501.9520, L502.0250 #### [facility] [address] [place], [address] Potassium [Moles/Vol] 4.2 mmol/L Normal 3.5-5.1 [facility] Comment on above: Order Comment: Order Date: 05/16/23 Order Info: 666-06 - BMP Order Info: 787-06 - LIVER Order Info: [id number] - LIPID Order Info: 3026-2 - T4 Order Info: 3015-3 - TSH Performed By: #### L 500.2500, L500.3400, L500.4100, L501.9310, L501.9520, L502.0250 #### [facility] [address] [place], [address] Sodium [Moles/Vol] 134 mmol/L Low 136-145 [facility] Comment on above: Order Comment: Order Date: 05/16/23 Order Info: 666-06 - BMP Order Info: 787-06 - LIVER Order Info: - LIPID Order Info: 3026-2 - T4 Order Info: 3015-3 - TSH Performed By: #### L 500.2500, L500.3400, L500.4100, L501.9310, L501.9520, L502.0250 #### [facility] [address] [place], [address] Urea nitrogen [Mass/Vol] 19 mg/dL High 7-18 [facility] Comment on above: Order Comment: Order Date: 05/16/23 Order Info: 666-06 - BMP Order Info: 787-06 - LIVER Order Info: 08098-1 - LIPID Order Info: 3026-2 - T4 Order Info: 6-3 - TSH Performed By: #### L 500.2500, L500.3400, L500.4100, L501.9310, L501.9520, L502.0250 #### [facility] [address] [place], [address] Lipid Profileon 11-07-2023 Cholesterol [Mass/Vol] 156 mg/dL Normal 200 [facility] Comment on above: Order Comment: Order Date: 05/16/23 Order Info: 666-06 - BMP Order Info: 787-06 - LIVER Order Info: - LIPID Order Info: 3025-07 - T4 Order Info: 3015-08 - TSH Result Comment: <200 mg/dL Desirable 200-240 mg/dL Borderline >240 mg/dL High Risk Performed By: #### L 500.2500, L500.3400, L500.4100, L501.9310, L501.9520, L502.0250 #### [facility] [address] [place], [address] Cholesterol in HDL [Mass/Vol] 39 mg/dL Low [facility] Comment on above: Order Comment: Order Date: 05/16/23 Order Info: 666-06 - BMP Order Info: 787-06 - LIVER Order Info: - LIPID Order Info: 3025-07 - T4 Order Info: 3015-08 - TSH Result Comment: The drugs N-Acetylcysteine and Metamizole may falsely depress this assay. Reference Range HDL <40 mg/dL Low HDL Cholesterol HDL >or= 60 mg/dL High HDL Cholesterol Performed By: #### L 500.2500, L500.3400, L500.4100, L501.9310, L501.9520, L502.0250 #### [facility] [address] [place], [address] Cholesterol in LDL [Mass/Vol] 70 mg/dL Normal 0-130 [facility] Comment on above: Order Comment: Order Date: 05/16/23 Order Info: 666-06 - BMP Order Info: 787-06 - LIVER Order Info: - LIPID Order Info: 3025-07 - T4 Order Info: 3015-08 - TSH Performed By: #### L 500.2500, L500.3400, L500.4100, L501.9310, L501.9520, L502.0250 #### [facility] [address] [place], [place], [address] Cholesterol in VLDL [Mass/Vol] 47 mg/dL High 5-40 [facility] Comment on above: Order Comment: Order Date: 05/16/23 Order Info: 666-06 - BMP Order Info: 787-06 - LIVER Order Info: - LIPID Order Info: 2 - T4 Order Info: 3015-08 - TSH Performed By: #### L 500.2500, L500.3400, L500.4100, L501.9310, L501.9520, L502.0250 #### [facility] [address] [facility] [address] [facility] [address] [place], [place], [address] Triglyceride [Mass/Vol] 237 mg/dL High [facility] Comment on above: Order Comment: Order Date: 05/16/23 Order Info: 666-06 - BMP Order Info: 787-06 - LIVER Order Info: - LIPID Order Info: 2 - T4 Order Info: 3015-08 - TSH Result Comment: The drugs N-Acetylcysteine and Metamizole may falsely depress this assay. Serum Triglycerides Reference Interval Normal <150 mg/dL Borderline high 150 - 199 mg/dL High 200 - 499 mg/dL Very High > or = 500 mg/dL Performed By: #### L 500.2500, L500.3400, L500.4100, L501.9310, L501.9520, L502.0250 #### [facility] [address] [place], [place], [address] Liver Profileon 11-07-2023 Albumin [Mass/Vol] 3.7 g/dL Normal 3.2-5.0 [facility] Comment on above: Order Comment: Order Date: 05/16/23 Order Info: 666-06 - BMP Order Info: 787-06 - LIVER Order Info: - LIPID Order Info: 2 - T4 Order Info: 3 - TSH Performed By: #### L 500.2500, L500.3400, L500.4100, L501.9310, L501.9520, L502.0250 #### [facility] [address] [place], [address] ALK P 61 U/L Normal 45-117 [facility] Comment on above: Order Comment: Order Date: 05/16/23 Order Info: 666-06 - BMP Order Info: 787-06 - LIVER Order Info: - LIPID Order Info: 3026-2 - T4 Order Info: 3015-3 - TSH Performed By: #### L 500.2500, L500.3400, L500.4100, L501.9310, L501.9520, L502.0250 #### [facility] [address] [place], [address] ALT [Catalytic activity/Vol] 27 U/L Normal 16-61 [facility] Comment on above: Order Comment: Order Date: 05/16/23 Order Info: 666-06 - BMP Order Info: 787-06 - LIVER Order Info: - LIPID Order Info: 3026-2 - T4 Order Info: 301-3 - TSH Performed By: #### L 500.2500, L500.3400, L500.4100, L501.9310, L501.9520, L502.0250 #### [facility] [address] [place], [address] AST [Catalytic activity/Vol] 22 U/L Normal 15-37 [facility] Comment on above: Order Comment: Order Date: 05/16/23 Order Info: 666-06 - BMP Order Info: 787-06 - LIVER Order Info: 07040-3 - LIPID Order Info: 3026-2 - T4 Order Info: 3016-3 - TSH Performed By: #### L 500.2500, L500.3400, L500.4100, L501.9310, L501.9520, L502.0250 #### [facility] [address] [place], [address] Bilirubin [Mass/Vol] 0.60 mg/dL Normal 0.20-1.00 [facility] Comment on above: Order Comment: Order Date: 05/16/23 Order Info: 666-06 - BMP Order Info: 787-06 - LIVER Order Info: - LIPID Order Info: 3025-2 - T4 Order Info: 3015-3 - TSH Result Comment: For patients on eltrombopag therapy, use of Dimension [place] TBIL is not recommended. Performed By: #### L 500.2500, L500.3400, L500.4100, L501.9310, L501.9520, L502.0250 #### [facility] [address] [place], [address] Bilirubin.direct [Mass/Vol] 0.13 mg/dL Normal 0.00-0.30 [facility] Comment on above: Order Comment: Order Date: 05/16/23 Order Info: 666-06 - BMP Order Info: 787-06 - LIVER Order Info: - LIPID Order Info: 2 - T4 Order Info: 3 - TSH Performed By: #### L 500.2500, L500.3400, L500.4100, L501.9310, L501.9520, L502.0250 #### [facility] [address] [place], [address] Globulin (S) [Mass/Vol] 3.5 g/dL Normal 2.2-4.2 [facility] Comment on above: Order Comment: Order Date: 05/16/23 Order Info: 666-06 - BMP Order Info: 787-06 - LIVER Order Info: - LIPID Order Info: 2 - T4 Order Info: 3 - TSH Performed By: #### L 500.2500, L500.3400, L500.4100, L501.9310, L501.9520, L502.0250 #### [facility] [address] [place], [address] T PROT 7.2 g/dL Normal 6.4-8.2 [facility] Comment on above: Order Comment: Order Date: 05/16/23 Order Info: 666-06 - BMP Order Info: 787-06 - LIVER Order Info: - LIPID Order Info: 3025-2 - T4 Order Info: 3015-3 - TSH Performed By: #### L 500.2500, L500.3400, L500.4100, L501.9310, L501.9520, L502.0250 #### [facility] [address] [place], [address] T4 Total, Thyroxinon 024 T4 [Mass/Vol] 11.6 ug/dL Normal 4.5-12.1 [facility] Comment on above: Order Comment: Order Date: 05/16/23 Order Info: 666-06 - BMP Order Info: 787-06 - LIVER Order Info: - LIPID Order Info: 3026-2 - T4 Order Info: 3015-3 - TSH Performed By: #### L 500.2500, L500.3400, L500.4100, L501.9310, L501.9520, L502.0250 #### [facility] [address] [place], [place], [address] Thyroid Stim Hormone (TSH)on 11-07-2023 TSH 0.27 uIU/mL Low 0.358-3.74 [facility] Comment on above: Order Comment: Order Date: 05/16/23 Order Info: 666-06 - BMP Order Info: 787-06 - LIVER Order Info: - LIPID Order Info: 3026-2 - T4 Order Info: 3016-3 - TSH Performed By: #### L 500.2500, L500.3400, L500.4100, L501.9310, L501.9520, L502.0250 #### [facility] [address] [place], [address] Basophil percentageOrdered B y: Dr. Zhang on 09-30-2022 Chloride [Moles/Vol] 102 mmol/L 98-107 [facility] Cholesterol [Mass/Vol] 170 mg/dL <200 [facility] Comment on above: <200 mg/dL Desirable 200-240 mg/dL Borderline >240 mg/dL High Risk Glucose [Mass/Vol] 260 mg/dL 74-106 [facility] Comment on above: Glucose result great er than or equal to 200 mg/dLsuggests DIABETES MELLITUS per A.D.A. criteria. Potassium [Moles/Vol] 4.1 mmol/L 3.5-5.1 [facility] Sodium [Moles/Vol] 134 mmol/L 136-145 [facility] Triglyceride [Mass/Vol] 260 mg/dL <199 [facility] Comment on above: The drugs N-Acetylcy steine and Metamizole may falsely depress this assay.Serum Triglycerides Reference Interval Normal <150 mg/dL Borderline high 150 - 199 mg/dL High 200 - 499 mg/dL Very High > or = 500 mg/dL Laboratory - Chemistry and C hemistry - challengeOrdered By: Dr. Zhang on 09-30-2022 CO2 [Moles/Vol] 26.0 mmol/L 21.0-32.0 [facility] T4 [Mass/Vol] 11.5 ug/dL 4.5-12.1 [facility] Urea nitrogen/Creatinine [Mass ratio] 19.0 mg/mg 10-20 [facility] No Panel InformationOrdered By: Dr. Zhang on 09-30-2022 Estimated GFR (MDRD) Amer 129 mL/min >60 [facility] Comment on above: GFR Calc Estimated GFR (MDRD) Non-Af Amer 107 mL/min >60 [facility] Comment on above: Non- GFR Calc Thyroid Stimulating Hormone (TSH) 0.06 uIU/mL 0.358-3.74 [facility] Serum or plasma calcium анна urement (mass/volume)Ordered By: Dr. Zhang on 09-30-2022 Calcium [Mass/Vol] 9.3 mg/dL 8.5-10.1 [facility] Serum or plasma cholesterol in HDL measurement (mass/volume)Ordered By: Dr. Zhang on 09-30-2022 Cholesterol in HDL [Mass/Vol] 45 mg/dL >40 [facility] Comment on above: The drugs N-Acetylcy steine and Metamizole may falsely depress this assay. Reference Range HDL <40 mg/dL Low HDL Cholesterol HDL >or= 60 mg/dL High HDL Cholesterol Serum or plasma cholesterol in VLDL measurement (mass/volume)Ordered By: Dr. Zhang on 09-30-2022 Cholesterol in VLDL [Mass/Vol] 52 mg/dL 5-40 [facility] Serum or plasma creatinine m easurement (mass/volume)Ordered By: Dr. Zhang on 09-30-2022 Creatinine [Mass/Vol] 0.79 mg/dL 0.70-1.30 [facility] Comment on above: The validity of the calculated GFR & GFRAA in patients over 70 years has not been determined. Clinical correlation is essential. Serum or plasma low density lipoprotein (LDL) cholesterol measurement (mass/volume)Ordered By: Dr. Zhang on 09-30-2022 Cholesterol in LDL [Mass/Vol] 73 mg/dL 0-130 [facility] Serum or plasma urea nitroge n measurement (mass/volume)Ordered By: Dr. Zhang on 09-30-2022 Urea nitrogen [Mass/Vol] 15 mg/dL 7-18 [facility] Thin prep Papanicolaou smear with manual screeningOrdered By: Dr. Zhang on 09-30-2022 Thin prep Papanicolaou smear with manual screening 6 5-15 [facility] Basophil percentageon 2021 Cholesterol [Mass/Vol] 164 mg/dL <200 [facility] Work Phone: Comment on above: <200 mg/dL Desirable 200-240 mg/dL Borderline >240 mg/dL High Risk Triglyceride [Mass/Vol] 276 mg/dL [facility] Work Phone: Comment on above: The drugs N-Acetylcy steine and Metamizole may falsely depress this assay.Serum Triglycerides Reference Interval Normal <150 mg/dL Borderline high 150 - 199 mg/dL High 200 - 499 mg/dL Very High > or = 500 mg/dL Laboratory - Chemistry and C hemistry - challengeon 09-30-2021 ALT [Catalytic activity/Vol] 39 U/L 16-61 [facility] Work Phone: T4 [Mass/Vol] 11.9 ug/dL 4.5-12.1 [facility] Work Phone: No Panel Informationon 09-30 Thyroid Stimulating Hormone (TSH) 0.20 uIU/mL 0.358-3.74 [facility] Work Phone: Serum or plasma cholesterol in HDL measurement (mass/volume)on 09-30-2021 Cholesterol in HDL [Mass/Vol] 38 mg/dL [facility] Work Phone: Comment on above: The drugs N-Acetylcy steine and Metamizole may falsely depress this assay. Reference Range HDL <40 mg/dL Low HDL Cholesterol HDL >or= 60 mg/dL High HDL Cholesterol Serum or plasma cholesterol in VLDL measurement (mass/volume)on 09-30-2021 Cholesterol in VLDL [Mass/Vol] 55 mg/dL 5-40 [facility] Work Phone: Serum or plasma low density lipoprotein (LDL) cholesterol measurement (mass/volume)on 09-30-2021 Cholesterol in LDL [Mass/Vol] 71 mg/dL 0-130 [facility] Work Phone: Thin prep Papanicolaou smear with manual screeningon 09-30-2021 Thin prep Papanicolaou smear with manual screening 19 U/L 15-37 [facility] Work Phone: Whole blood hemoglobin A1c/t otal hemoglobin ratio (mass fraction)on 09-30-2021 HbA1c (Bld) [Mass fraction] 11.3 % 3.8-5.6 [facility] Work Phone: Comment on above: Normal < 5.7 % Predi abetic 5.7 - 6.4 % Diabetic >or= 6.5 % Please note range changes. Vital Signs Date Time Vital Sign Value Performing Clinician Etienne bell 2024 09:39-0400 Body height 179.[address] Sue Zhang MD Work Phone: [facility] 2024 09:39-0400 Body mass index (BMI) [Ratio] 31.2 kg/m2 Dr. Sue Zhnag MD Work Phone: [phone] [place] [address] 2024 09:39-0400 Body temperature 98.4 [degF] Dr. Sue Zhang MD Work Phone: [phone](876)[phone] [place] [address] 2024 09:39-0400 Body weight 100.[address] Sue Zhang MD Work Phone: 1(903)791-926119 [place] [address] 2024 09:39-0400 Diastolic blood pressure 70 mm[Hg] Dr. Sue Zhang MD Work Phone: 9(570)010-295219 [place] [address] 2024 09:39-0400 Heart rate 77 /min Dr. Sue Zhang MD Work Phone: 2(693)477-163819 [place] [address] 2024 09:39-0400 Respiratory rate 16 /min Dr. Sue Zhang MD Work Phone: [phone])[phone] [place] [address] 2024 09:39-0400 SaO2% (BldA) [Mass fraction] 97 % Dr. Sue Zhang MD Work Phone: [phone](181)744-773819 [place] [address] 2024 09:39-0400 Systolic blood pressure 130 mm[Hg] Dr. Sue Zhang MD Work Phone: 3(366)163-955719 [place] [address] 07-05-2024 09:28-0500 Body mass index (BMI) [Ratio] 30.5 kg/m2 Dr. Sue Zhang MD Work Phone: 3(429)[phone] [place] [address] 07-05-2024 09:28-0500 Body temperature 98.6 [degF] Dr. Sue Zhang MD Work Phone: 4([phone])[phone] [place] [address] 07-05-2024 09:28-0500 Body weight 97.[address] Sue Zhang MD Work Phone: 1(072)[phone] [place] [address] 07-05-2024 09:28-0500 Diastolic blood pressure 72 mm[Hg] Dr. Sue Zhang MD Work Phone: [facility] 07-05-2024 09:28-0500 Heart rate 92 /min Dr. Sue Zhang MD Work Phone: [facility] 07-05-2024 09:28-0500 Respiratory rate 16 /min Dr. Sue Zhang MD Work Phone: [facility] 07-05-2024 09:28-0500 SaO2% (BldA) [Mass fraction] 97 % Dr. Sue Zhang MD Work Phone: [facility] 07-05-2024 09:28-0500 Systolic blood pressure 110 mm[Hg] Dr. Sue Zhang MD Work Phone: [facility] Encounters Encounter Date Encounter Type Care Provider Facility Start: 2024 End: [address] Jesus Cabello MD -[facility] Work Phone: Start: 2024 End: [address] Sue Zhang MD Work Phone: [facility] Work Phone: Start: 2024 End: 2024 ambulatory Sue Zhang Facility:[facility] Start: 08-16-2024 Encounter for genera l adult medical examination without abnormal findings [facility] Start: 07-24-2024 ambulatory Angela Thomas Facility:[facility] Start: 07-24-2024 Non-patient / Non-visit Dr. Angela muro MD -[facility] Start: 07-24-2024 End: 07-24-2024 Patient encounter procedure Gilda Herndon [employer] -Pulmonary Services/Neurology Work Phone: Start: 07-24-2024 End: 07-24-2024 [facility] Start: 07-17-2024 ambulatory Adriananm Martha Facility:[facility] Start: 07-17-2024 Non-patient / Non-visit [facility] Start: 07-17-2024 End: 07-17-2024 Patient encounter procedure Glida Herndon [employer]-C -Pulmonary Services/Neurology Work Phone: Start: 07-17-2024 End: 07-17-2024 ambulatory Gilda [facility] Facility:[facility] Start: 07-05-2024 End: 07-05-[address] Jesus Cabello MD -[facility] Work Phone: Start: 07-05-2024 End: 07-05-2024 ambulatory Sue Zhang Facility:[facility] Start: 05-27-2024 End: 05-27-[address] Sue Zhang MD -[facility] Start: 05-27-2024 End: 05-27-2024 ambulatory Sue S Leatha Facility:[facility] Start: 11-07-2023 End: 11-07-2023 ambulatory Sue S Leatha Facility:[facility] Start: 09-30-2022 End: 09-30-2022 ambulatory [facility] Work Phone: Start: 09-30-2022 End: 09-30-2022 Patient encounter procedure [facility] Start: 09-30-2021 End: 09-30-2021 Patient encounter procedure [facility] Payers Date Payer Category Payer Private Health Insurance [id number] 2024 Private Health Insurance [id number] 2023 Private Health Insurance [id number] 2023 Self-pay [id number] Unknown [id number] Unknown [id number] 07.21. [id number] Unknown [id number] 2.16.8 [id number] Unknown [id number] 2.16.8 [id number] Unknown [id number] 2.16.8 [id number] Unknown [id number] 2.16.8 [id number] Unknown [id number] 2.16.8 [id number] Unknown [id number] 2.16.8 [id number] Unknown [id number] 2.16.8 [id number] Unknown [id number] 2.16.8 [id number] Social History Date Type Detail Facility Start: 06-07-[address] [facility] Unknown if ever smoked [facility] Start: 04-23-2019 Non-smoker [facility] Start: 1965 Sex Assigned At Male [facility] Start: 07-05-20[facility] Start: 09-20-2024 Sex Male (finding) [facility] Evaluation note 07-05-2024 Note Date & Type Note Facility 07-05-2024 Evaluation note Diagnosis Onset Date Resolution Diabetic neuropathy chronic Jan2024 9:25am Diabetic neuropathy chronic 2024 9:36am [facility] Work Phone: Evaluation note Note Date & Type Note Facility Evaluation note No assessment information availa [facility] Work Phone: Reason for referral (narrative) Note Date & Type Note Facility Reason for referral (narrative) No reason for referral information available [facility] Work Phone: Chief Complaint and Reason for Visit Chief Complaint EORDER Chief Complaint Admit Date NEUROPATHIC PAIN July 05, 2024 9 :25am BLE; Diabetes mellitus due to underlying July 17, 2024 6:31am BLE; Diabetes mellitus due to underlying July 17, 2024 9:40am BUE; Diabetes mellitus due to underlying July 24, 2024 6:34am BUE; Diabetes mellitus due to underlying July 24, 2024 12:47pm 3 M FU 2024 9:3 6am EORDERS 2024 10: 22am Reason for Visit Admit Date Diabetic neuropathy July 05, 2024 9 :25am Diabetic neuropathy 2024 9:3 6am Advance Directives No Advanced Directives Records Found Advance Directive Response Recorded Date/ Time Living Will Yes April 23 019 9:20am Power of Structural Mill Supervisor Yes April 23, 2019 9:20am Family History No Family History Records Found Relationship Condition Age at Onset Recorded Date/T bakari mother Multiple sclerosis Unknown father Cardiac disease Unknown Lymphoma Unknown Summary Purpose Additional Source Comments Goals (unrecognized section and content) Goals may be documented in a n alternate sectionGoals may be documented in an alternate sectionGoals may be documented in an alternate section Care Teams (unrecognized sec tion and content) Team Status: Active Member Role Status Dates Dr. Sue Zhang MD Family Provider Active Dr. Sue Zhang MD Primary Care Provider Active Team Status: Inactive Member Role Status Dates Dr. Sue Zhang MD Primary Care Prov ider, Attending Provider, Referring Provider Active Team Status: Active Member Role Status Dates Dr. Sue Zhang MD Primary Care Provider Active Team Status: Inactive Member Role Status Dates Dr. Sue Zhang MD Primary Care Provider Active Start: May 27, 2024 End: May 27, 2024 Dr. Sue Zhang MD Attending Provider Active Start: May 27, 2024 End: May 27, 2024 Dr. Sue Zhang MD Referring Provider Active Start: May 27, 2024 End: May 27, 2024 Team Status: Inactive Member Role Status Dates Dr. Sue Zhang MD Primary Care Provider Active Start: July 05, 2024 End: July 05, 2024 Dr. Sue Zhang MD Referring Provider Active Start: July 05, 2024 End: July 05, 2024 Dr. Jesus Cabello MD Attending Provider Active Start: July 05, 2024 End: July 05, 2024 Team Status: Inactive Member Role Status Dates Dr. Sue Zhang MD Primary Care Provider Active Start: July 17, 2024 End: July 17, 2024 Gilda Herndon , [employer] Attending Provider Active S tart: July 17, 2024 End: July 17, 2024 Gildaasia Wanger , [employer]C Referring Provider Active S tart: July 17, 2024 End: July 17, 2024 Team Status: Active Member Role Status Dates Dr. Sue Zhang MD Primary Care Provider Active Start: July 17, 2024 Gildaasia Wanger , [employer]-C Referring Provider Active S tart: July 17, 2024 Gildaasia Wanger , [employer]ER-C Other Provider Active Start : July 17, 2024 Dr. Angela Thomas MD Attending Provider Active S tart: July 17, 2024 Team Status: Inactive Member Role Status Dates Dr. Sue Zhang MD Primary Care Provider Active Start: July 24, 2024 End: July 24, 2024 Gilda Herndon , [employer]C Attending Provider Active S tart: July 24, 2024 End: July 24, 2024 Gilda Bordner , [employer]E [employer]ER-C Referring Provider Active S tart: July 24, 2024 End: July 24, 2024 Team Status: Active Member Role Status Dates Dr. Sue Zhang MD Primary Care Provider Active Start: July 24, 2024 Gilda Herndon , INCOME [employer]ER-C Referring Provider Active S tart: July 24, 2024 Gildaasia Herndon , INCOME [employer]ER-C Other Provider Active Start : July 24, 2024 Dr. Angela Thomas MD Attending Provider Active S tart: July 24, 2024 Team Status: Inactive Member Role Status Dates Dr. Sue Zhang MD Primary Care Provider Active Start: 2024 End: 2024 Dr. Sue Zhang MD Referring Provider Active Start: 2024 End: 2024 Dr. Jesus Cabello MD Attending Provider Active Start: 2024 End: 2024 Team Status: Inactive Member Role Status Dates Dr. Sue Zhang MD Primary Care Provider Active Start: 2024 End: 2024 Dr. Jesus Cabello MD Attending Provider Active Start: 2024 End: 2024 Dr. Jesus Cabello MD Referring Provider Active Start: 2024 End: 2024 (unrecognized sect ion and content) No Status Records Found INFORMATION SOURCE (unrecogn ized section and content) DATE CREATED AUTHOR 10/19/2024 [facility] FOR RECORDS PERTAINING TO PATIENTS WHO ARE OR HAVE BEEN ENROLLED IN A CHEMICAL DEPENDENCY/SUBSTANCEABUSE PROGRAM, SOME INFORMATION MAY BE OMITTED. This clinical summary was aggregated from multiple sources. Caution should be exercised in using it in the provision of clinical care. This summary normalizes information from multiple sources, and as a consequence, information in this document may materially change the coding, format and clinical context of patient data. In addition, data may be omitted in some cases. CLINICAL DECISIONS SHOULD BE BASED ON THE PRIMARY CLINICAL RECORDS. [employer] [facility]. provides no warranty or guarantee of the accuracy or completeness of information in this document.
[2024-11-26 10:09] LABS: Hematocrit 42.6 % (40-54); Hemoglobin 14.9 g/dL (13.0-16.5); Mean Corpuscular Hgb 30.8 pg (27.0-32.0); Mean Corpuscular Volume 88.2 fL (80-94); Mean Platelet Vol. 8.4 fl (6.2-12.0); Platelet Count 143 K/mm3 (150-450); RBC Distribution Width CV 12.4 % (11.6-14.6); Red Blood Count 4.83 M/mm3 (4.6-6.2); White Blood Count 7.3 K/mm3 (4.4-11.0)
[2024-11-26 10:40] LABS: Cholesterol 193 mg/dL (<=200); High Density Lipoprotein 34 mg/dL; Low Density Lipoprotein Calc. 106 mg/dL; Thyroid Stim Hormone (TSH) 0.137 uIU/mL (0.300-4.200); Triglycerides 265 mg/dL; Very Low Density Lipoprotein 53 mg/dL (5-40); cholesterol:hdl ratio screen 5.63
== END | disposition home or self-care (01) ==
LOC: MTLAB 07:10
PROVIDERS: PCP Family Medicine; Referring Provider Family Medicine; Visit Provider Family Medicine
DX: Z01.89 Encounter for other specified special examinations (principal)
CPT/HCPCS: 36415; 80061; 84443; 85027

== ENCOUNTER → 2025-01-17 | Outpatient (CLI) | payer OTHER, SELFPAY ==
--- OUTSIDE RECORDS SUMMARY | 2025-01-17 08:37 | XMS RPT_ITS | CCD ---
Author Organization [facility] CliniSyla Care Team Providers Care Filer And Sander Name Role Phone Leatha BAEZA, Dr. Sue Hester Primary Care Provider Leatha BAEZA, Dr. Sue Hester Attending Provider Leatha BAEZA, Dr. Sue Hester Referring Provider Destiney BAEZA, Dr. Lee Attending Provider [phone] Yanick AMMUNITION ASSEMBLY LABORER-C, Gilda Attending Provider [phone] Yanick AMMUNITION ASSEMBLY LABORER-C, Gilda Referring Provider Yanick AMMUNITION ASSEMBLY LABORER-C, Gilda Other Provider Martha BAEZA, Dr. Miller Attending Provider [phone] Destiney BAEZA, Dr. Lee Referring Provider Dr. Sue Zhang MD Primary Care Provider [phone] Leatha BAEZA, Dr. Sue Hester Referring Provider Destiney BAEZA, Dr. Lee Attending Provider Amor Hodgson MD Primary Care Provider [phone] Amor Hodgson MD Attending Provider [phone] Amor Hodgson MD Referring Provider [phone] Mingiff, Sue S Primary Care Unavailable Angela Thomas Attending Unavailable Gilda Herndon Consulting Unavailable FelipeerGilda Referring Unavailable Jolliff, Sue S Primary Care Unavailable Gilda Herndon Attending Unavailable Gilda Herdnon Referring Unavailable Mingiff, Sue S Primary Care Unavailable Jesus Cabello Attending Unavailable Jesus Cabello Referring Unavailable Amor Hodgson Primary Care Unavailable Amor Hodgson Attending Unavailable Amor Hodgson Referring Unavailable Jesus Cabello Attending Unavailable Jolliff, Sue S Primary Care Unavailable Jolliff, Sue S Referring Unavailable Gilda Herndon Consulting Unavailable Jolliff, Sue S Primary Care Unavailable Angela Thomas Attending Unavailable Gilda Herndon Referring Unavailable Jolliff, Sue S Primary Care Unavailable Jesus Cabello Attending Unavailable Jolliff, Sue S Referring Unavailable Jolliff, Sue S Primary Care Unavailable Jolliff, Sue S Attending Unavailable Jolliff, Sue S Referring Unavailable Jolliff, Sue S Primary Care Unavailable Gilda Herndon Attending Unavailable Gilda Herndon Referring Unavailable Medications Current Medications Medication Drug Class(es) Dates Sig (Normalized) Sig (Original) gabapentin 600 mg oral tablet (2 sources) Anti-epileptic Agent Start: 07-05-2024 take 1 tablet by mouth at bedtime Gabapentin 600 mg tablet Active 600 mg PO AT BEDTIME July 05, 2024 1:00am levothyroxine sodium 0.175 mg oral tablet (6 sources) l-Thyroxine Start: 07-05-2024 take 1 tablet by mouth once daily Levothyroxine 175 mcg tablet Active 175 ug PO daily July 05, 2024 1:00am Start: 04-12-2019 End: 07-05-2024 take 1 tablet by mouth once daily Levothyroxine (Synthroid) 25 mcg tablet Discontinued 25 ug PO DAILY April 12, 2019 1:00am July 05, 2024 10:33am metFORMIN hydrochloride 500 mg oral tablet (4 sources) Biguanide Start: 07-05-2024 End: 2024 take 2 tablets by mouth in the evening Metformin 500 mg tablet Active 500 mg PO .COMPLEX 2024 9:44am 500 mg orally 1 tab in the am and 2 tabs in the pm; rosuvastatin calcium 20 mg oral tablet (2 sources) HMG-CoA Reductase Inhibitor Start: 07-05-2024 take 1 tablet by mouth once daily Rosuvastatin 20 mg tablet Active 20 mg PO daily July 05, 2024 1:00am ubidecarenone 200 mg oral capsule (2 sources) Start: 07-05-2024 Coenzyme Q10 ( Co Q-10) 200 mg capsule Active 200 mg PO TWICE A DAY July 05, 2024 1:00am Completed/Discontinued Medications Medication Drug Class(es) Dates Sig (Normalized) Sig (Original) acetaminophen 325 mg / HYDROcodone bitartrate 5 mg oral tablet (4 sources) Opioid Agonist Start: 04-30-2019 End: 05-22-2019 Hydrocodone-Acetamino phen 1 TABLET tablet Discontinued 1 - 2 {tbl} PO EVERY 4 HOURS NEEDED as needed for Pain 40 5 0 April 30, 2019 May 04, 2019 1:00am May 22, 2019 1:08am Other acute postprocedural pain Start: 04-30-2019 End: 05-22-2019 take 1 tablet by mouth every four hours as needed Hydrocodone-Acetaminophen Discontinued 1 - 2 TABLET PO EVERY 4 HOURS NEEDED 40 5 April 30, 2019 May 22, 2019 1:08am aspirin 325 mg oral tablet (4 sources) Platelet Aggregation Inhibitor, Nonsteroidal Anti-inflammatory Drug Start: 04-12-2019 End: 07-05-2024 take 1 tablet by mouth at bedtime Aspirin 325 mg tablet Discontinued 325 mg PO AT BEDTIME April 12, 2019 1:00am July 05, 2024 10:32am gemfibrozil 600 mg oral tablet (4 sources) Peroxisome Proliferator Receptor alpha Agonist Start: 04-12-2019 End: 07-05-2024 take 1 tablet by mouth twice daily Gemfibrozil 600 mg tablet Discontinued 600 mg PO TWICE A DAY April 12, 2019 1:00am July 05, 2024 10:33am niacin 100 mg oral tablet (4 sources) Nicotinic Acid Start: 04-12-2019 End: 07-05-2024 take 1 tablet by mouth once daily Niacin 100 mg tablet Discontinued 100 mg PO DAILY April 12, 2019 1:00am July 05, 2024 10:33am Problems Active Problems Problem Classification Problem Date Documented Date Episodic/Chronic Diabetes mellitus with complications (9 sources) Neuropathy due to diabetes mellitus; Translations: [Type 2 diabetes mellitus with diabetic neuropathy, unspecified] Onset: 08-21-2024 2024 Chronic Comment on above: Patient appears [...] Test Name Value Interpretation Reference Range Facility CBC-Complete Blood Cnt No Di ffon 11-26-2024 Erythrocyte distribution width (RBC) [Ratio] 12.4 % Normal 11.6-14.6 [facility] Comment on above: Order Comment: Order Date: 11/25/24 Order Info: [id number] - CBC Performed By: #### L 100.0500 #### [facility] [address] [place], [address] ([phone] Hematocrit (Bld) [Volume fraction] 42.6 % Normal 40-54 [facility] Comment on above: Order Comment: Order Date: 11/25/24 Order Info: [id number] - CBC Performed By: #### L 100.0500 #### [facility] [address] [place], [address] Hemoglobin (Bld) [Mass/Vol] 14.9 g/dL Normal 13.0-16.5 [facility] Comment on above: Order Comment: Order Date: 11/25/24 Order Info: [id number] - CBC Performed By: #### L 100.0500 #### [facility] [address] [place], [address] MCH (RBC) [Entitic mass] 30.8 pg Normal 27.0-32.0 [facility] Comment on above: Order Comment: Order Date: 11/25/24 Order Info: [id number] - CBC Performed By: #### L 100.0500 #### [facility] [address] [place], [address] MCHC (RBC) [Mass/Vol] 35.0 g/dL Normal 32-36 [facility] Comment on above: Order Comment: Order Date: 11/25/24 Order Info: [id number] - CBC Performed By: #### L 100.0500 #### [facility] [address] [place], [address] MCV (RBC) [Entitic vol] 88.2 fL Normal 80-94 [facility] Comment on above: Order Comment: Order Date: 11/25/24 Order Info: [id number] - CBC Performed By: #### L 100.0500 #### [facility] [address] [place], [address] Platelet mean volume (Bld) [Entitic vol] 8.4 fL Normal 6.2-12.0 [facility] Comment on above: Order Comment: Order Date: 11/25/24 Order Info: [id number] - CBC Performed By: #### L 100.0500 #### [facility] [address] [place], [address] Platelets (Bld) [#/Vol] 143 10*3/uL Low 150-450 [facility] Comment on above: Order Comment: Order Date: 11/25/24 Order Info: [id number] - CBC Performed By: #### L 100.0500 #### [facility] [address] [place], [address] RBC (Bld) [#/Vol] 4.83 10*6/uL Normal 4.6-6.[address] [facility] Comment on above: Order Comment: Order Date: 11/25/24 Order Info: [id number] - CBC Performed By: #### L 100.0500 #### [facility] [address] [place], [address] RDW SD 40.0 fl Normal 35.1-43.9 [facility] Comment on above: Order Comment: Order Date: 11/25/24 Order Info: [id number] - CBC Performed By: #### L 100.0500 #### [facility] [address] [place], [address] WBC (Bld) [#/Vol] 7.3 10*3/uL Normal 4.4-11.0 [facility] Comment on above: Order Comment: Order Date: 11/25/24 Order Info: [id number] - CBC Performed By: #### L 100.0500 #### [facility] [address] [place], [address] Calculated very low density lipoprotein (VLDL) cholesterol measurementOrdered By: Amor Hodgson on 11-26-2024 Calculated very low density lipoprotein (VLDL) cholesterol measurement 53 mg/dL High 5-40 [facility] Erythrocyte distribution wid th ratioOrdered By: Amor Hodgson on 11-26-2024 Erythrocyte distribution width (RBC) [Ratio] 12.4 % 11.6-14.6 [facility] Erythrocyte distribution wid th standard deviationOrdered By: Amor Hodgson on 11-26-2024 Erythrocyte distribution width (RBC) [Ratio] 40.0 fl 35.1-43.9 [facility] Hematocrit Auto (Bld) [Volum e fraction]Ordered By: Amor Hodgson on 11-26-2024 Hematocrit (Bld) [Volume fraction] 42.6 % 40-54 [facility] Hemoglobin measurementOrdere d By: Amor Hodgson on 11-26-2024 Hemoglobin (Bld) [Mass/Vol] 14.9 g/dL 13.0-16.5 [facility] LDL calc ser/plasOrdered By: Amor Hodgson on 11-26-2024 Cholesterol in LDL [Mass/Vol] 106 mg/dL [facility] Comment on above: Ytfolerjnz=719-385 m g/dL & Higher Yhex=829 mg/dL or greater Lipid Profileon 11-26-2024 CHOL:HDL 5.63 Normal [facility] Comment on above: Order Comment: Order Date: 11/25/24 Order Info: [id number] - LIPID Order Info: [id number] - TSH Performed By: #### L 501.9520, L500.4100 #### [facility] [address] [place], [address] Cholesterol [Mass/Vol] 193 mg/dL Normal <=200 [facility] Comment on above: Order Comment: Order Date: 11/25/24 Order Info: [id number] - LIPID Order Info: [id number] - TSH Result Comment: Chol esterol level, Desirable <200 mg/dL Borderline high cholesterol 200-239 mg/dL High cholesterol >=240 mg/dL Recommendations of the NCEP Adult Treatment Panel for the following risk-cutoff thresholds for the [place] population. Performed By: #### L 501.9520, L500.4100 #### [facility] [address] [place], [address] Cholesterol in HDL [Mass/Vol] 34 mg/dL Low [facility] Comment on above: Order Comment: Order Date: 11/25/24 Order Info: [id number] - LIPID Order Info: [id number] - TSH Result Comment: Yesika onal Cholesterol Education Program (NCEP) guidelines: <40 mg/dL: Low HDL-cholesterol (major risk factor for CHD) >= 60 mg/dL: High HDL-cholesterol (negative risk factor for CHD) HDL-cholesterol is affected by a number of factors, e.g. smoking, exercise, hormones, sex and age. Performed By: #### L 501.9520, L500.4100 #### [facility] [address] [place], [address] Cholesterol in LDL [Mass/Vol] 106 mg/dL Normal [facility] Comment on above: Order Comment: Order Date: 11/25/24 Order Info: [id number] - LIPID Order Info: [id number] - TSH Result Comment: Bord ihjkie=941-534 mg/dL Higher Ibuu=946 mg/dL or greater Performed By: #### L 501.9520, L500.4100 #### [facility] [address] [place], [address] Cholesterol in VLDL [Mass/Vol] 53 mg/dL High 5-40 [facility] Comment on above: Order Comment: Order Date: 11/25/24 Order Info: [id number] - LIPID Order Info: [id number] - TSH Performed By: #### L 501.9520, L500.4100 #### [facility] [address] [place], [address] Triglyceride [Mass/Vol] 265 mg/dL High [facility] Comment on above: Order Comment: Order Date: 11/25/24 Order Info: [id number] - LIPID Order Info: [id number] - TSH Result Comment: The drugs N-Acetylcysteine and Metamizole may falsely depress this assay. Normal range: <150 mg/dL Borderline High: 150-199 mg/dL High: 200-499 mg/dL Very High: >500 mg/dL Performed By: #### L 501.9520, L500.4100 #### [facility] [address] [place], [place], [address] MCV (mean corpuscular volume ) determinationOrdered By: Amor Hodgson on 11-26-2024 MCV (RBC) [Entitic vol] 88.2 fL 80-94 [facility] Mean corpuscular hemoglobin (MCH) determinationOrdered By: Amor Hodgson on 11-26-2024 MCH (RBC) [Entitic mass] 30.8 pg 27.0-32.0 [facility] Mean corpuscular hemoglobin concentration (MCHC) determinationOrdered By: Amor Hodgson on 11-26-2024 MCHC (RBC) [Mass/Vol] 35.0 g/dL 32-36 [facility] Mean platelet volume determi nationOrdered By: Amor Hodgson on 11-26-2024 Platelet mean volume (Bld) [Entitic vol] 8.4 fL 6.2-12.0 [facility] Platelet countOrdered By: Miladis Hodgson on 11-26-2024 Platelets (Bld) [#/Vol] 143 10*3/uL Low 150-450 [facility] RBC Auto (Bld) [#/Vol]Ordere d By: Amor Hodgson on 11-26-2024 RBC (Bld) [#/Vol] 4.83 10*6/uL 4.6-6.[address] [facility] Screening total cholesterol/ high density lipoprotein (HDL) cholesterol ratioOrdered By: Amor Hodgson on 11-26-2024 Cholesterol.total/Choles terol in HDL [Mass ratio] 5.63 {ratio} [facility] Serum or plasma cholesterol in HDL measurement (mass/volume)Ordered By: Amor Hodgson on 11-26-2024 Cholesterol in HDL [Mass/Vol] 34 mg/dL Low >40 [facility] Comment on above: National Cholesterol Education Program (NCEP) guidelines:<40 mg/dL: Low HDL-cholesterol (major risk factor for CHD)>= 60 mg/dL: High HDL-cholesterol (negative risk factor for CHD)HDL-cholesterol is affected by a number of factors, e.g. smoking, exercise, hormones, sex and age. Serum or plasma cholesterol measurement (mass/volume)Ordered By: Amor Hodgson on 11-26-2024 Cholesterol [Mass/Vol] 193 mg/dL <201 [facility] Comment on above: Cholesterol level, D esirable <200 mg/dLBorderline high cholesterol 200-239 mg/dLHigh cholesterol >=240 mg/dLRecommendations of the NCEP Adult Treatment Panel for the following risk-cutoff thresholds for the [place] population. TSH DL <= 0.005 mIU/L QnOrde red By: Amor Hodgson on 11-26-2024 TSH Qn 0.137 uIU/mL Low 0.300-4.200 [facility] Thyroid Stim Hormone (TSH)on 11-26-2024 TSH 0.137 uIU/mL Low 0.300-4.200 [facility] Comment on above: Order Comment: Order Date: 11/25/24 Order Info: [id number] - LIPID Order Info: [id number] - TSH Performed By: #### L 501.9520, L500.4100 #### [facility] [address] [place], [place], [address] Triglycerides measurementOrd ered By: Amor Hodgson on 11-26-2024 Triglyceride [Mass/Vol] 265 mg/dL High <199 [facility] Comment on above: The drugs N-Acetylcy steine and Metamizole may falsely depress this assay. Normal range: <150 mg/dLBorderline High: 150-199 mg/dLHigh: 200-499 mg/dLVery High: >500 mg/dL White blood cell (WBC) count Ordered By: Amor Hodgson on 11-26-2024 WBC (Bld) [#/Vol] 7.3 10*3/uL 4.4-11.0 [facility] Magnesiumon 2024 Magnesium [Mass/Vol] 1.8 mg/dL Normal 1.5-2.2 [facility] Comment on above: Performed By: #### L 503.0106, L501.5200 #### [facility] [address] [place], [address] Magnesium (Unsp spec) [Mass/ Vol]Ordered By: Jesus Cabello on 2024 Magnesium [Mass/Vol] 1.8 mg/dL 1.5-2.2 [facility] Magnesium measurement (mass/ volume)Ordered By: Jesus Cabello on 2024 Magnesium (Unsp spec) [Mass/Vol] 1.8 mg/dL 1.5-2.2 [facility] Neurology Visit Reporton Neurology Visit Report [facility] [address], [address] [place], [place] [address] OFFICE VISIT Date of Service: 09/16/24 MR#: [id number] Acct: [id number] Name: JAIME AMOS Rep #: [id number] : 1965 Provider: Dr. Jesus chávez MD Age/Sex: 59/M Location: [facility]. Status: Signed [facility] Chief Complaint: Neurology follow up Details: The [...] mellitus due (more content not included)... Normal [facility] Vitamin B12on 2024 Cobalamin (Vitamin B12) [Mass/Vol] 855 pg/mL Normal 180-914 [facility] Comment on above: Performed By: #### L 503.0106, L501.5200 #### [facility] [address] [place], [address] Vitamin B12 ser/plasOrdered By: Jesus Cabello on 04-14-2025 Cobalamin (Vitamin B12) [Mass/Vol] 855 pg/mL 180-914 [facility] NCS and/or EMG Patienton NCS and/or EMG Patient [facility] Pulmonary Services/Neurology [address] [place] [address] MR#: [id number] Acct: [id number] Name: JAIME AMOS Rep #: [id number] : 1965 58 From: Angela Thomas MD Referring Dr: Gilda Herndon AMMUNITION ASSEMBLY LABORER-C Status: REG CL I Location: PSN Date: 07/24/24 Sex: M C NCS and/or [...] Multi Select Codes Neurology Neurology Interp Codes: 91995-97 Musc test done w/n test comp (interp) (2) and 63095-41 Nrv cndj test 13/> studies (interp) 07/24/24 1251 Date Angela Thomas MD CC: AMMUNITION ASSEMBLY LABORER-C Gilda Herndon; Dr. Sue Zhang MD; Dr. Angela Thomas MD Date Dictated: 07/24/241246 Date Transcribed: 07/24/241246 Dyeing Machine Back Tender: MARCO ANTONIO Signed Normal [facility] NCS and/or EMG Patienton NCS and/or EMG Patient [facility] Pulmonary Services/Neurology [address] [place] [address] MR#: [id number] Acct: [id number] Name: JAIME AMOS Rep #: [id number] : 1965 58 From: Angela Thomas MD Referring Dr: Gilda Herndon AMMUNITION ASSEMBLY LABORER-C Status: REG CL I Location: PSN Date: [...] Multi Select Codes Neurology Neurology Interp Codes: 51929-39 Musc test done w/n test comp (interp) (2) and 37848-43 Nrv cndj test 11-12 studies (interp) 07/17/24 0945 Date Angela Thomsa MD CC: AMMUNITION ASSEMBLY LABORER-C Gilda Herndon; Dr. Sue Zhang MD; Dr. Angela Thomas MD Date Dictated: 02/12/25 0940 Date Transcribed: 07/17/24939 Dyeing Machine Back Tender: MARCO ANTONIO Signed Normal [facility] Neurology Visit Reporton Neurology Visit Report [facility] [address], [address] [place] [address] OFFICE VISIT Date of Service: 07/05/24 MR#: [id number] Acct: [id number] Name: JAIME AMOS Rep #: [id number] : 1965 Provider: Dr. Jesus chávez MD Age/Sex: 58/M Location: [facility]. Status: Signed with Addenda ADDENDUM by SUE Herndon on 07/17/24 at 1247 Addend NCS and/or EMG Patient Report Ordering Doctor: [...] diabetes mellitus. 07/17/24 1247 Date Gilda Herndon cc: * Signed HPI [facility] Chief Complaint: Establish Care Details: The patient is a 58-year-old right handed male who [facility]. He was referred 05/27/[address] Sue Zhang with [facility] for neuropathy. This patient presents by [...] now asymptomatic Skin mid garcia bruises on [place] hitch on his truck. Heal without difficulty. [...] out of 3 objects. Language show normal supply chain procurement manager expression repetition naming. Insight and judgment appears [...] both h (more content not included)... Normal [facility] PSA,Total - Annual Screenon 05-27-2024 PSA,TOT SCREEN 0.23 ng/mL Normal 0.00-4.00 [facility] Comment on above: Result Comment: This test was performed using the TPSA assay method for the [employer] chemistry system. Values obtained with different assay methods cannot be used interchangably. When changing PSA assays in the course of monitoring a patient, additional sequential testing should be carried out to confirm baseline values. Performed By: #### L 501.9910 #### [facility] [address] [place], [address] Screening prostate specific antigen (PSA) measurementOrdered By: Sue Zhang on 05-27-2024 Prostate Specific Antigen Screen 0.23 ng/mL 0.00-4.00 [facility] Comment on above: This test was perfor med using the TPSA assay method for theFatwire chemistry system. Values obtained with differentassay methods cannot be used interchangably.When changing PSA assays in the course of monitoring apatient, additional sequential testing should be carriedout to confirm baseline values. Basophil percentageOrdered B y: Dr. Zhang on 09-30-2022 Chloride [Moles/Vol] 102 mmol/L 98-107 [facility] Cholesterol [Mass/Vol] 170 mg/dL <200 [facility] Comment on above: <200 mg/dL Desirable 200-240 mg/dL Borderline >240 mg/dL High Risk Glucose [Mass/Vol] 260 mg/dL 74-106 [facility] Comment on above: Glucose result great er than or equal to 200 mg/dLsuggests DIABETES MELLITUS per A.D.A. criteria. Potassium [Moles/Vol] 4.1 mmol/L 3.5-5.1 [facility] Sodium [Moles/Vol] 134 mmol/L 136-145 [facility] Triglyceride [Mass/Vol] 260 mg/dL <199 [facility] Comment on above: The drugs N-Acetylcy steine and Metamizole may falsely depress this assay.Serum Triglycerides Reference Interval Normal <150 mg/dL Borderline high 150 - 199 mg/dL High 200 - 499 mg/dL Very High > or = 500 mg/dL Laboratory - Chemistry and C hemistry - challengeOrdered By: Dr. Zhang on 09-30-2022 CO2 [Moles/Vol] 26.0 mmol/L 21.0-32.0 [facility] T4 [Mass/Vol] 11.5 ug/dL 4.5-12.1 [facility] Urea nitrogen/Creatinine [Mass ratio] 19.0 mg/mg 10-20 [facility] No Panel InformationOrdered By: Dr. Zhang on 09-30-2022 Estimated GFR (MDRD) Amer 129 mL/min >60 [facility] Comment on above: GFR Calc Estimated GFR (MDRD) Non-Af Amer 107 mL/min >60 [facility] Comment on above: Non- GFR Calc Thyroid Stimulating Hormone (TSH) 0.06 uIU/mL 0.358-3.74 [facility] Serum or plasma calcium анна urement (mass/volume)Ordered By: Dr. Zhang on 09-30-2022 Calcium [Mass/Vol] 9.3 mg/dL 8.5-10.1 [facility] Serum or plasma cholesterol in HDL measurement (mass/volume)Ordered By: Dr. Zhang on 09-30-2022 Cholesterol in HDL [Mass/Vol] 45 mg/dL >40 [facility] Comment on above: The drugs N-Acetylcy steine and Metamizole may falsely depress this assay. Reference Range HDL <40 mg/dL Low HDL Cholesterol HDL >or= 60 mg/dL High HDL Cholesterol Serum or plasma cholesterol in VLDL measurement (mass/volume)Ordered By: Dr. Zhang on 09-30-2022 Cholesterol in VLDL [Mass/Vol] 52 mg/dL 5-40 [facility] Serum or plasma creatinine m easurement (mass/volume)Ordered By: Dr. Zhang on 09-30-2022 Creatinine [Mass/Vol] 0.79 mg/dL 0.70-1.30 [facility] Comment on above: The validity of the calculated GFR & GFRAA in patients over 70 years has not been determined. Clinical correlation is essential. Serum or plasma low density lipoprotein (LDL) cholesterol measurement (mass/volume)Ordered By: Dr. Zhang on 09-30-2022 Cholesterol in LDL [Mass/Vol] 73 mg/dL 0-130 [facility] Serum or plasma urea nitroge n measurement (mass/volume)Ordered By: Dr. Zhang on 09-30-2022 Urea nitrogen [Mass/Vol] 15 mg/dL 7-18 [facility] Thin prep Papanicolaou smear with manual screeningOrdered By: Dr. Zhang on 09-30-2022 Thin prep Papanicolaou smear with manual screening 6 5-15 [facility] Basophil percentageon 2021 Cholesterol [Mass/Vol] 164 mg/dL <200 [facility] Work Phone: Comment on above: <200 mg/dL Desirable 200-240 mg/dL Borderline >240 mg/dL High Risk Triglyceride [Mass/Vol] 276 mg/dL [facility] Work Phone: Comment on above: The drugs N-Acetylcy steine and Metamizole may falsely depress this assay.Serum Triglycerides Reference Interval Normal <150 mg/dL Borderline high 150 - 199 mg/dL High 200 - 499 mg/dL Very High > or = 500 mg/dL Laboratory - Chemistry and C hemistry - challengeon 09-30-2021 ALT [Catalytic activity/Vol] 39 U/L 16-61 [facility] Work Phone: T4 [Mass/Vol] 11.9 ug/dL 4.5-12.1 [facility] Work Phone: No Panel Informationon 09-30 Thyroid Stimulating Hormone (TSH) 0.20 uIU/mL 0.358-3.74 [facility] Work Phone: Serum or plasma cholesterol in HDL measurement (mass/volume)on 09-30-2021 Cholesterol in HDL [Mass/Vol] 38 mg/dL [facility] Work Phone: Comment on above: The drugs N-Acetylcy steine and Metamizole may falsely depress this assay. Reference Range HDL <40 mg/dL Low HDL Cholesterol HDL >or= 60 mg/dL High HDL Cholesterol Serum or plasma cholesterol in VLDL measurement (mass/volume)on 09-30-2021 Cholesterol in VLDL [Mass/Vol] 55 mg/dL 5-40 [facility] Work Phone: Serum or plasma low density lipoprotein (LDL) cholesterol measurement (mass/volume)on 09-30-2021 Cholesterol in LDL [Mass/Vol] 71 mg/dL 0-130 [facility] Work Phone: Thin prep Papanicolaou smear with manual screeningon 09-30-2021 Thin prep Papanicolaou smear with manual screening 19 U/L 15-37 [facility] Work Phone: Whole blood hemoglobin A1c/t otal hemoglobin ratio (mass fraction)on 09-30-2021 HbA1c (Bld) [Mass fraction] 11.3 % 3.8-5.6 [facility] Work Phone: Comment on above: Normal < 5.7 % Predi abetic 5.7 - 6.4 % Diabetic >or= 6.5 % Please note range changes. Vital Signs Date Time Vital Sign Value Performing Clinician Faci lity 2024 09:39-0400 Body height 179.[address] Sue Zhang MD Work Phone: [facility] 2024 09:39-0400 Body mass index (BMI) [Ratio] 31.2 kg/m2 Dr. Sue Zhang MD Work Phone: [facility] 2024 09:39-0400 Body temperature 98.4 [degF] Dr. Sue Zhang MD Work Phone: [facility] 2024 09:39-0400 Body weight 100.[address] Sue Zhang MD Work Phone: [facility] 2024 09:39-0400 Diastolic blood pressure 70 mm[Hg] Dr. uSe Zhang MD Work Phone: [facility] 2024 09:39-0400 Heart rate 77 /min Dr. Sue Zhang MD Work Phone: [facility] 2024 09:39-0400 Respiratory rate 16 /min Dr. Sue Zhang MD Work Phone: 9(187)[phone] [place] [address] 2024 09:39-0400 SaO2% (BldA) [Mass fraction] 97 % Dr. Sue Zhang MD Work Phone: 2(436)771-405092 [place] [address] 2024 09:39-0400 Systolic blood pressure 130 mm[Hg] Dr. Sue Zhang MD Work Phone: 1(418)924-286892 [place] [address] 07-05-2024 09:28-0500 Body mass index (BMI) [Ratio] 30.5 kg/m2 Dr. Sue Zhang MD Work Phone: 7(882)949-742807 [place] [address] 07-05-2024 09:28-0500 Body temperature 98.6 [degF] Dr. Sue Zhang MD Work Phone: 6(082)046-032492 [place] [address] 07-05-2024 09:28-0500 Body weight 97.[address] Sue Zhang MD Work Phone: 4(783)357-588393 [address] 07-05-2024 09:28-0500 Diastolic blood pressure 72 mm[Hg] Dr. Sue Zhang MD Work Phone: 3(604)034-069107 [place] [address] 07-05-2024 09:28-0500 Heart rate 92 /min Dr. Sue Zhang MD Work Phone: 8(684)[phone] [place] [address] 07-05-2024 09:28-0500 Respiratory rate 16 /min Dr. Sue Zhang MD Work Phone: 9(550)[phone] [place] [address] 07-05-2024 09:28-0500 SaO2% (BldA) [Mass fraction] 97 % Dr. Sue Zhang MD Work Phone: 9(130)[phone] [place] [address] 07-05-2024 09:28-0500 Systolic blood pressure 110 mm[Hg] Dr. Sue Zhang MD Work Phone: [facility] Encounters Encounter Date Encounter Type Care Provider Facility Start: 12-18-2024 Encounter for genera l adult medical examination without abnormal findings Gildaasia Herndon [facility] Start: 12-02-2024 [facility] other specified [facility] Start: 11-26-2024 End: 11-26-[address] Sue Zhang MD Work Phone: [facility] Start: 11-26-2024 End: 11-26-[address] Amor Hodgson MD -[facility] [place] Work Phone: Start: 11-26-2024 End: 11-26-2024 ambulatory [facility] Facility:[facility] Start: 2024 End: [address] Jesus Cabello MD -[facility] Work Phone: Start: 2024 End: [address] Sue Zhang MD Work Phone: [facility] Work Phone: Start: 2024 End: 2024 ambulatory Sue Zhang Facility:[facility] Start: 07-24-2024 ambulatory Gilda Herndon Facility: [facility] Start: 07-24-2024 Non-patient / Non-visit Dr. Angela muro MD -[facility] Start: 07-24-2024 End: 07-24-2024 Patient encounter procedure Gilda Herndon [employer] -Pulmonary Services/Neurology Work Phone: Start: 07-24-2024 End: 07-24-2024 ambulatory Sue Zhang Facility:[facility] Start: 07-17-2024 ambulatory Sue Zhang Facility: [facility] Start: 07-17-2024 Non-patient / Non-visit Dr. Angela muro MD -[facility] Start: 07-17-2024 End: 07-17-2024 Patient encounter procedure Gilda Herndon [employer] -[facility]rology Work Phone: Start: 07-17-2024 End: 07-17-2024 ambulatory Sue Zhang Facility:[facility] Start: 07-05-2024 End: 07-05-[address] Jesus Cabello MD -[facility] Work Phone: Start: 07-05-2024 End: 07-05-2024 ambulatory Jesus Cabello Facility:[facility] Start: 05-27-2024 End: 05-27-[address] Sue Zhang MD -[facility] Start: 05-27-2024 End: 05-27-2024 [facility] Start: 09-30-2022 End: 09-30-2022 ambulatory [facility] Work Phone: Start: 09-30-2022 End: 09-30-2022 Patient encounter procedure [facility] Start: 09-30-2021 End: 09-30-2021 Patient encounter procedure [facility] Payers Date Payer Category Payer Private Health Insurance [id number] 2024 Private Health Insurance [id number] 2024 Private Health Insurance [id number] 2024 Self-pay [id number] Unknown [id number] Unknown [id number] 2.16.8 [id number] Unknown [id number] 2.16.8 [id number] Unknown [id number] 2.16.8 [id number] Unknown [id number] 2.16.8 [id number] Unknown [id number] 2.16.8 [id number] Unknown [id number] 2.16.8 [id number] Unknown [id number] 2.16.8 [id number] Unknown [id number] 2.16.8 [id number] Unknown [id number] 2.16.8 [id number] Social History Date Type Detail Facility Start: [facility]07[facility] Start: 04-23-2019 Non-smoker [facility] Start: 1965 Sex Assigned At Male [facility] Start: 07-05-2024 [facility] (finding) [facility] Start: 09-20-2024 Sex Male (finding) [facility] Evaluation note 2024 Note Date & Type Note Facility 2024 Evaluation note Diagnosis Onset Date Resolution Diabetic neuropathy chronic 2024 9:36am [facility] Work Phone: Evaluation note 07-05-2024 Note Date & Type Note Facility 07-05-2024 Evaluation note Diagnosis Onset Date Resolution Diabetic neuropathy chronic Janua 2024 9:25am Diabetic neuropathy chronic 2024 9:36am [facility] Work Phone: Evaluation note Note Date & Type Note Facility Evaluation note No assessment information availa ble [facility] Work Phone: Reason for referral (narrative) Note Date & Type Note Facility Reason for referral (narrative) No reason for referral information available [facility] Work Phone: Chief Complaint and Reason [...] 9 :25am Diabetic neuropathy 2024 9:3 6am Chief Complaint Admit Date 3 M FU 2024 9:3 6am EORDERS 2024 10: 22am EORDER November 26, 2024 7:09 am Reason for Visit Admit Date Diabetic neuropathy 2024 9:3 6am Advance Directives No Advanced Directives Records Found Advance Directive Response Recorded Date/ Time Living Will Yes April 23 9:20am Power of Accessioner Yes April 23, 2019 9:20am Family History [...] 27, 2024 End: May 27, 2024 Dr. uSe Zhang MD Attending Provider Active Start: May [...] 17, 2024 End: July 17, 2024 Gildaasia Herndon , [employer] Attending Provider Active S tart: July 17, 2024 End: July 17, 2024 Gilda Bordner , [employer] Referring Provider Active S tart: July 17, 2024 End: July 17, 2024 Team Status: Active Member Role Status Dates Dr. Sue Zhang MD Primary Care Provider Active Start: July 17, 2024 Gildaasia Wanger , [employer] Referring Provider Active S tart: July 17, 2024 Gilda Bordner , [employer] Other Provider Active Start : July 17, 2024 Dr. Angela Thomas MD Attending Provider Active S tart: July 17, 2024 Team Status: Inactive Member Role Status Dates Dr. Sue Zhang MD Primary Care Provider Active Start: July 24, 2024 End: July 24, 2024 Gildaasia Herndon , [employer] Attending Provider Active S tart: July 24, 2024 End: July 24, 2024 Gildaasia Wanger , [employer] Referring Provider Active S tart: July 24, 2024 End: July 24, 2024 Team Status: Active Member Role Status Dates Dr. Sue Zhang MD Primary Care Provider Active Start: July 24, 2024 Gildaasia Herndon , [employer] Referring Provider Active S tart: July 24, 2024 Gildaasia Herndon , [employer] Other Provider Active Start : July 24, [...] Referring Provider Active Start: 2024 End: 2024 Team Status: Active Member Role/Relationship Status Dates Amor Hodgson MD Primary Care Provider Active Team Status: Inactive Member Role/Relationship Status Dates Dr. Sue Zhang MD Primary Care Provider Active Start: 2024 End: 2024 Dr. Sue Zhang MD Referring Provider Active Start: 2024 End: 2024 Dr. Jesus Cabello MD Attending Provider Active Start: 2024 End: 2024 Team Status: Inactive Member Role/Relationship Status Dates Dr. Sue Zhang MD Primary Care Provider Active Start: 2024 End: 2024 Dr. Jesus Cabello MD Attending Provider Active Start: 2024 End: 2024 Dr. Jesus Cabello MD Referring Provider Active Start: 2024 End: 2024 Team Status: Inactive Member Role/Relationship Status Dates Amor Hodgson MD Primary Care Provider Active St art: November 26, 2024 End: November 26, 2024 Amor Hodgson MD Attending Provider Active Start : November 26, 2024 End: November 26, 2024 Amor Hodgson MD Referring Provider Active Start : November 26, 2024 End: November 26, 2024 (unrecognized sect ion and content) No Status Records Found INFORMATION SOURCE (unrecogn ized section and content) DATE CREATED AUTHOR 12/21/2024 [facility] FOR RECORDS PERTAINING TO PATIENTS [...] BE BASED ON THE PRIMARY CLINICAL RECORDS. [facility]. provides no warranty or guarantee of the accuracy or completeness of information in this document.
== END | disposition home or self-care (01) ==
LOC: MFPLAB 08:15
PROVIDERS: PCP Family Medicine; Visit Provider Family Medicine
DX: E03.9 Hypothyroidism, unspecified (principal); E11.65 Type 2 diabetes mellitus with hyperglycemia
CPT/HCPCS: 36415; 83036; 84443

== ENCOUNTER → 2025-06-03 | Outpatient (CLI) | payer OTHER, SELFPAY ==
[2025-06-03 12:39] LABS: PSA,Total - Annual Screen 0.24 ng/mL (0.02-4.00)
== END | disposition home or self-care (01) ==
LOC: MTLAB 09:59
PROVIDERS: PCP Family Medicine
DX: Z12.5 Encounter for screening for malignant neoplasm of prostate (principal)
CPT/HCPCS: 36415; 84153; G0103